=== PATIENT | female | born 1965 | race Caucasian/White ===

== ENCOUNTER → 2017-01-31 | Outpatient (CLI) | payer MEDICARE ==
--- NOTE | 2017-02-01 09:21 | MM ---
Reason for exam: screening (asymptomatic). Last mammogram was performed 1 year ago. History: Family history of breast cancer in mother at age 42, breast cancer in grandmother, and breast cancer in aunt. Physical Findings: A clinical breast exam by your physician is recommended on an annual basis and results should be correlated with mammographic findings. MG Screening Mammo w CAD Bilateral CC and MLO view(s) were taken. Prior study comparison: January 25, 2016, bilateral MG screening mammo w CAD. January 19, 2015, bilateral MG screening mammo w CAD. August 28, 2013, bilateral digital screening mammo w/CAD. The breast tissue is almost entirely fat. No significant changes when compared with prior studies. ASSESSMENT: Negative, BI-RAD 1 RECOMMENDATION: Routine screening mammogram of both breasts in 1 year.
== END | disposition home or self-care (01) ==
LOC: RADMAMWWP 14:57
PROVIDERS: ATTEND Family Medicine
DX: Z12.31 Encounter for screening mammogram for malignant neoplasm of breast (principal); Z80.3 Family history of malignant neoplasm of breast

== ENCOUNTER → 2017-03-01 | Outpatient (CLI) | payer MEDICARE ==
--- NOTE | 2017-03-01 10:18 | CT ---
EXAMINATION TYPE: CT chest wo con DATE OF EXAM: 03/01/2017 9:56 AM COMPARISON: CT chest January 11, 2016 and older CTs back to October 29, 2014. HISTORY: Shortness of breath and cough per order. Prior abnormal CT with spot on lungs per patient. CT DLP: 1131.6 mGycm. Automated Exposure Control for Dose Reduction was Utilized. TECHNIQUE: CT scan of the thorax is performed without IV contrast. FINDINGS: LUNGS: There is redemonstration of nodule right upper lobe measuring 15 x 8 mm on axial image 27 fredi sly stable from October 2014 study. A few adjacent smaller nodules near this level are stable. There is linear scarring anteriorly and inferiorly to this redemonstrated. No new suspicious greater than 4 mm parenchymal nodule or mass is identified bilaterally. There is no pleural effusion or pneumothor ax seen. The tracheobronchial tree is patent. MEDIASTINUM: Lack of IV contrast is noted to limit evaluation for mediastinal and especially hilar ad enopathy. There are no definitive greater than 1 cm noncalcified hilar or mediastinal lymph nodes. Th ere are prominent but calcified right hilar lymph nodes. No cardiomegaly or pericardial effusion is seen. OTHER: Visualized liver is low dense consistent with fatty infiltration. Mild to moderate multilevel spurring in the thoracic spine is present. IMPRESSION: Stable right upper lobe nodule without abnormal hypermetabolic uptake and documentation o f 2 year stability is consistent with postinflammatory etiology. No further follow-up necessary. No C T evidence for acute pulmonary process.
== END | disposition home or self-care (01) ==
LOC: RADCTMAIN 09:35
PROVIDERS: ATTEND Internal Medicine Pulmonary Disease
DX: R91.8 Other nonspecific abnormal finding of lung field (principal)
CPT/HCPCS: 71250

== ENCOUNTER → 2018-05-11 | Outpatient (CLI) | payer MEDICARE ==
[2018-05-11 15:12] LABS: HCT 44.7 % (34.0-46.0); HGB 15.3 gm/dL (11.4-16.0); MCH 31.3 pg (25.0-35.0); MCHC 34.1 g/dL (31.0-37.0); MCV 91.8 fL (80.0-100.0); Mean Platelet Volume 7.2; Platelet Count 290 k/uL (150-450); RBC 4.87 m/uL (3.80-5.40); RDW 13.1 % (11.5-15.5); WBC 7.1 k/uL (3.8-10.6)
[2018-05-11 15:21] LABS: ALT 40 U/L (9-52); AST 27 U/L (14-36); Albumin 4.1 g/dL (3.5-5.0); Alkaline Phosphatase 73 U/L (38-126); Anion Gap 11 mmol/L; Blood Urea Nitrogen 11 mg/dL (7-17); Calcium 9.3 mg/dL (8.4-10.2); Carbon Dioxide 25 mmol/L (22-30); Chloride 103 mmol/L (98-107); Glucose 121 mg/dL (74-99); Magnesium 1.6 mg/dL (1.6-2.3); Sodium 139 mmol/L (137-145); Total Bilirubin 0.3 mg/dL (0.2-1.3); Total Protein 6.7 g/dL (6.3-8.2)
[2018-05-18 13:56] LABS: Arsenic Whole Blood < 2 mcg/L (< 23); Mercury Whole Blood < 2 mcg/L (< 11)
== END | disposition home or self-care (01) ==
LOC: LABWHC1 14:03
PROVIDERS: ATTEND Family Medicine
DX: D58.2 Other hemoglobinopathies (principal); R25.1 Tremor, unspecified; E03.9 Hypothyroidism, unspecified; R47.02 Dysphasia
CPT/HCPCS: 36415; 80053; 82175; 82570; 82728; 83655; 83735; 83825; 84443; 84481; 85027

== ENCOUNTER → 2018-06-04 | Outpatient (CLI) | payer MEDICARE ==
--- NOTE | 2018-06-04 16:30 | MR ---
EXAMINATION TYPE: MR brain wo con DATE OF EXAM: 06/04/2018 COMPARISON: None HISTORY: Tremors CONTRAST: Performed utilizing 12 mL intravenous Gadavist gadolinium contrast. TECHNIQUE: Multiplanar, multiecho imaging on a 3.0 Maribel magnet is performed through the brain. Stud y is performed within 24 hours of arrival to the hospital. The craniovertebral junction is normal. The pituitary is normal. Diffusion-weighted imaging is performed. No abnormal hyperintensity is present to suggest an acute i ntracranial infarct or acute ischemic change. There are scattered punctate areas of hyperintensity on T2 and Inversion Recovery weighted sequences which are non-specific but can be related to microvascular ischemic changes. These number approximate ly 8 which is slightly greater than expected for patient of this age. Normal 5 or less. Finding is no nspecific but could be related to microvascular ischemic change. No corresponding abnormality on the diffusion is evident. Ventricles and sulci are appropriate for the patient age. Temporal lobes appear symmetrical. IMPRESSIONS: 1. Chronic appearing punctate white matter changes most likely on the basis of chronic white matter i schemic change.
== END | disposition home or self-care (01) ==
LOC: RADMRIMAIN 13:42
PROVIDERS: ATTEND Family Medicine
DX: R25.1 Tremor, unspecified (principal)
CPT/HCPCS: 70551

== ENCOUNTER → 2018-06-04 | Outpatient (CLI) | payer MEDICARE ==
--- NOTE | 2018-06-04 13:58 | MM ---
Reason for exam: additional evaluation requested from prior study. Last mammogram was performed 1 year and 4 months ago. History: Family history of breast cancer in mother at age 42, breast cancer in grandmother, and breast cancer in aunt. Physical Findings: Nurse did not find any significant physical abnormalities on exam. MG 3D Diag Mammo Wo Cad SHAHID Bilateral CC, MLO, and CV view(s) were taken. Technologist: Aysha Delaney RT (R)(M) Prior study comparison: January 31, 2017, bilateral MG screening mammo w CAD. January 25, 2016, bilateral MG screening mammo w CAD. There are scattered fibroglandular densities. There is chronic nodularity in the left breast medially. No significant new findings when compared with previous films. These results were verbally communicated with the patient and result sheet given to the patient on 06/04/18. ASSESSMENT: Negative, BI-RAD 1 RECOMMENDATION: Routine screening mammogram of both breasts in 1 year.
== END | disposition home or self-care (01) ==
LOC: RADMAMWWP 12:38
PROVIDERS: ATTEND Family Medicine
DX: Z08 Encounter for follow-up examination after completed treatment for malignant neoplasm (principal); Z85.3 Personal history of malignant neoplasm of breast
CPT/HCPCS: 77066; G0279; 77062

== ENCOUNTER 2018-09-10 15:42 | Inpatient (IN) | payer MEDICARE ==
[2018-09-10] MEDS ORDERED: SODIUM CHLORIDE 0.9% 1,000 ML IV STA (16:19)
[2018-09-10 16:40] LABS: Basophils % (A) 1 %; Eosinophils # (A) 0.1 k/uL (0-0.7); Eosinophils % (A) 2 %; HCT 49.2 % (34.0-46.0); HGB 16.6 gm/dL (11.4-16.0); Lymphocytes # (A) 2.8 k/uL (1.0-4.8); Lymphocytes % (A) 40 %; MCH 31.2 pg (25.0-35.0); MCHC 33.9 g/dL (31.0-37.0); MCV 92.1 fL (80.0-100.0); Mean Platelet Volume 6.9; Monocytes # (A) 0.3 k/uL (0-1.0); Monocytes % (A) 4 %; Neutrophils # (A) 3.7 k/uL (1.3-7.7); Neutrophils % (A) 53 %; Platelet Count 325 k/uL (150-450); RBC 5.34 m/uL (3.80-5.40); RDW 13.1 % (11.5-15.5); WBC 6.9 k/uL (3.8-10.6)
[2018-09-10] MEDS ORDERED: LABETALOL 5 MG/ML VIAL MDV IVP STA (16:40)
[2018-09-10] MEDS ORDERED: DIAZEPAM 5 MG/ML 2 ML INJ IVP STA (16:40)
[2018-09-10 16:51] LABS: ALT 67 U/L (9-52); AST 62 U/L (14-36); Albumin 4.3 g/dL (3.5-5.0); Alkaline Phosphatase 88 U/L (38-126); Anion Gap 9 mmol/L; Blood Urea Nitrogen 12 mg/dL (7-17); Calcium 10.3 mg/dL (8.4-10.2); Carbon Dioxide 28 mmol/L (22-30); Chloride 101 mmol/L (98-107); Glucose 115 mg/dL (74-99); Lipase 114 U/L (23-300); Magnesium 1.7 mg/dL (1.6-2.3); Potassium 4.4 mmol/L (3.5-5.1); Sodium 138 mmol/L (137-145); Total Bilirubin 0.5 mg/dL (0.2-1.3); Total Protein 7.5 g/dL (6.3-8.2)
[2018-09-10 17:13] LABS: Creatine Kinase MB 0.7 ng/mL (0.0-2.4)
[2018-09-10 17:28] LABS: Troponin I 0.156 ng/mL (0.000-0.034)
--- NOTE | 2018-09-10 17:39 | ED ---
Chest Pain HPI - General Chief Complaint: Chest Pain Stated Complaint: chest pain Time Seen by Provider: 09/10/18 16:13 Source: patient, family, RN notes reviewed, old records reviewed Mode of arrival: wheelchair Limitations: no limitations - History of Present Illness Initial Comments: This is a 52-year-old female to the ER for evaluation. This patient resents today for evaluation regards to chest pain patient has anterior chest pain. Left arm tingling and numbness. Patient has been for 2 weeks. Patient has history of high blood pressure history of tremor. Patient was seen in the ER for evaluation by family doctor to possible abnormal EKG. Patient does feel mildly anxious with mild shortness of breath patient does have history of high blood pressure high cholesterol MD Complaint: chest pain -: days(s) (2) Onset: during rest, during exertion Pain Location: left chest Pain Radiation: LUE Severity: mild Severity scale (1-10): 4 Quality: tightness, aching Consistency: constant Improves With: nothing Worsens With: nothing Anginal Symptoms: dyspnea Other Symptoms: palpitations Treatments Prior to Arrival: none - Related Data Home Medications Medication Instructions Recorded Confirmed ARIPiprazole [Abilify] 10 mg PO DAILY 09/10/18 09/10/18 Aspirin EC [Ecotrin Low Dose] 81 mg PO DAILY 09/10/18 09/10/18 Dextroamphetamine/Amphetamine 5 - 10 mg PO DAILY 09/10/18 09/10/18 [Adderall] Divalproex Sodium [Depakote] 500 mg PO HS 09/10/18 09/10/18 Pravastatin Sodium [Pravachol] 40 mg PO HS 09/10/18 09/10/18 Ubidecarenone [Co Q-10] 100 mg PO DAILY 09/10/18 09/10/18 Venlafaxine HCl [Effexor XR] 75 mg PO DAILY 09/10/18 09/10/18 Allergies Allergy/AdvReac Type Severity Reaction Status Date / Time No Known Allergies Allergy Verified 09/10/18 16:06 Review of Systems ROS Statement: Those systems with pertinent positive or pertinent negative responses have been documented in the HPI. ROS Other: All systems not noted in ROS Statement are negative. EKG Findings - EKG Comments: EKG Findings:: EKG shows sinus tachycardia rate of 108, IN 150, QRS 70, QTc 460 Past Medical History Past Medical History: Hyperlipidemia, Hypertension History of Any Multi-Drug Resistant Organisms: None Reported Past Surgical History: Cholecystectomy, Hernia Repair Past Psychological History: ADD/ADHD, Anxiety, Bipolar, Depression, Schizoaffective Disorder Smoking Status: Former smoker Past Alcohol Use History: None Reported Past Drug Use History: None Reported General Exam Limitations: no limitations General appearance: alert, in no apparent distress Head exam: Present: atraumatic, normocephalic, normal inspection Eye exam: Present: normal appearance, PERRL, EOMI. Absent: scleral icterus, conjunctival injection, periorbital swelling ENT exam: Present: normal exam, mucous membranes moist Neck exam: Present: normal inspection. Absent: tenderness, meningismus, lymphadenopathy Respiratory exam: Present: normal lung sounds bilaterally. Absent: respiratory distress, wheezes, rales, rhonchi, stridor Cardiovascular Exam: Present: normal rhythm, tachycardia, normal heart sounds. Absent: systolic murmur, diastolic murmur, rubs, gallop, clicks GI/Abdominal exam: Present: soft, normal bowel sounds. Absent: distended, tenderness, guarding, rebound, rigid Extremities exam: Present: normal inspection, full ROM, normal capillary refill. Absent: tenderness, pedal edema, joint swelling, calf tenderness Back exam: Present: normal inspection Neurological exam: Present: alert, oriented X3, CN II-XII intact Psychiatric exam: Present: normal affect, normal mood Skin exam: Present: warm, dry, intact, normal color. Absent: rash Course Vital Signs 09/10/18 09/10/18 09/10/18 15:47 17:45 18:01 Temperature 98.2 F Pulse Rate 112 H 105 H 110 H Respiratory 18 18 Rate Blood Pressure 186/114 167/89 115/77 O2 Sat by Pulse 98 98 Oximetry - Reevaluation(s) Reevaluation #1: 09/10/18 18:51 Medical record is reviewed Reevaluation #2: 09/10/18 18:51 Patient has improved blood pressure control here in the ER, still with chest pain Chest Pain MDM - MDM 52 female the ER for evaluation. Patient was essay for evaluation of chest pain center by doctor's office rel possibly abnormal EKG. EKG here in the ER is negative 2. Patient placed on anticoagulation will admit for elevated troponin chest pain, non-STEMI Critical Care Time Critical Care Time: Yes Total Critical Care Time: 31 Disposition Clinical Impression: NSTEMI (non-ST elevated myocardial infarction), Chest pain Disposition: ADMITTED IP TO THIS HOSP Condition: Serious Is patient prescribed a controlled substance at d/c from ED?: No Referrals: Ebony Locke MD [Primary Care Provider] - 1-2 days
--- NOTE | 2018-09-10 17:43 | XR ---
EXAMINATION: XR chest 2V DATE AND TIME: 09/10/2018 4:48 PM CLINICAL INDICATION: Chest Pain TECHNIQUE: PA and lateral COMPARISON: 01/02/2014 FINDINGS: The lungs are clear. The pleural spaces are negative. The cardiac silhouette is not enlarged. The remainder of the mediastinal silhouette is unremarkable. The skeletal structures and soft tissues are negative for acute findings. IMPRESSION: NO ACUTE PROCESS.
--- NOTE | 2018-09-10 18:29 | CT ---
EXAMINATION TYPE: CT abdomen pelvis w con DATE OF EXAM: 09/10/2018 COMPARISON: 09/10/2014 HISTORY: Mid to left sided chest pain. CT DLP: 1807.7 mGycm Automated exposure control for dose reduction was used. TECHNIQUE: Helical acquisition of images was performed from the lung bases through the pelvis. CONTRAST: Performed without Oral Contrast and with IV Contrast, patient injected with mL of Isovue 370. FINDINGS: VISUALIZED SUPRADIAPHRAGMATIC STRUCTURES: No significant abnormality is appreciated. LIVER/GB: No significant abnormality is appreciated. PANCREAS: No significant abnormality is seen. SPLEEN: No significant abnormality is seen. ADRENALS: No significant abnormality is seen. KIDNEYS: No significant abnormality is seen. PERITONEAL CAVITY: No free air is visualized. No fluid collections. ABDOMINAL ADENOPATHY: None visualized REPRODUCTIVE ORGANS: No significant abnormality is seen URINARY BLADDER: No significant abnormality is seen. PELVIC ADENOPATHY: None visualized. OSSEOUS STRUCTURES: No significant abnormality is seen. BOWEL: There are no acute findings. However, there are innumerable colonic diverticula seen scattere d throughout the entire colon. No diverticulitis. VASCULATURE: Unremarkable. IMPRESSION: NO ACUTE PROCESS.
--- NOTE | 2018-09-10 18:42 | CT ---
EXAMINATION TYPE: CT angio chest with contrast and with 3-D Reconstruction rendering DATE OF EXAM: 09/10/2018 5:42 PM COMPARISON: 08/23/2017 HISTORY: Mid to left sided chest pain. CT DLP: 553.6 mGycm Automated exposure control for dose reduction was used. CONTRAST: CTA scan of the thorax is performed with IV Contrast, patient injected with 100 mL of Isovu e 370, pulmonary embolism protocol. 3-D reconstructions. FINDINGS: AIRWAYS AND LUNGS: The airways are unremarkable. There is no pulmonary edema or pneumonia or other ac [place] pulmonary process. Stable appearing 15 x 9 mm smoothly marginated right suprahilar nodule is note d. This continues to have soft tissue and calcific density and presumably represents healed granuloma tous process. Associated stable appearance 2 cm right suprahilar lymph node containing central high a ttenuation, presumably granulomatous. MEDIASTINUM: There is satisfactory enhancement of the pulmonary artery and its branches, there is no CT evidence for pulmonary embolism. The thoracic aorta is negative. There is no cardiomegaly. No bakari cardial effusion. PLEURAL SPACES: Negative. BONES AND SOFT TISSUES: No additional significant abnormality is seen. IMPRESSION: NO ACUTE PROCESS.
[2018-09-10 18:47] LABS: D-Dimer 0.41 mg/L FEU (<0.60); Partial Thromboplastin Time 23.4 sec (22.0-30.0); Prothrombin Time 10.3 sec (9.0-12.0)
[2018-09-10] MEDS ORDERED: HEPARIN SODIUM,PORCINE 5,000 UNIT/ML 1 ML VIAL IV PRN (18:47)
[2018-09-10] MEDS ORDERED: HEPARIN SODIUM,PORCINE 5,000 UNIT/ML 1 ML VIAL IV ONE (18:47)
[2018-09-10] MEDS ORDERED: ASPIRIN 81 MG PO STA (18:47)
[2018-09-10] MEDS ORDERED: HEPARIN SOD,PORK IN 0.45% NACL 25,000 UNIT in 0.45% NACL 1 500ML.BAG IV SCH (19:00)
[2018-09-10] MEDS: SODIUM CHLORIDE 0.9% 1,000 ML IV SCH (19:34)
[2018-09-10] MEDS ORDERED: ONDANSETRON 4 MG/2 ML VIAL IM STA (20:19)
[2018-09-10] MEDS: MORPHINE SULFATE 4 MG/ML SYRINGE IVP PRN ×2 (20:24→23:57)
[2018-09-10] MEDS: METOPROLOL TARTRATE 25 MG TAB PO SCH (22:43)
[2018-09-10 23:51] LABS: Creatine Kinase MB 0.7 ng/mL (0.0-2.4)
[2018-09-11 00:09] LABS: Troponin I 0.157 ng/mL (0.000-0.034)
[2018-09-11 00:50] LABS: Cholesterol 250 mg/dL (<200); HDL Cholesterol 67 mg/dL (40-60); LDL Cholesterol,Calculated 133 mg/dL (0-99); Triglycerides 252 mg/dL (<150)
[2018-09-11] MEDS: NITROGLYCERIN SL TABS 0.4 MG TAB SUBLINGUAL PRN ×3 (01:51→12:50)
[2018-09-11] MEDS: MORPHINE SULFATE 4 MG/ML SYRINGE IVP PRN ×2 (03:41→08:25)
[2018-09-11 05:35] LABS: Mean Platelet Volume 7.1; Platelet Count 295 k/uL (150-450)
[2018-09-11 06:14] LABS: Creatine Kinase MB 0.7 ng/mL (0.0-2.4)
[2018-09-11 06:15] LABS: Troponin I 0.16 ng/mL (0.000-0.034)
[2018-09-11] MEDS ORDERED: ALPRAZolam 0.5 MG TAB PO PRN (07:15)
[2018-09-11] MEDS ORDERED: SODIUM CHLORIDE 0.9% 1,000 ML in EMPTY BAG 1 BAG IV ONE (07:15)
[2018-09-11] MEDS ORDERED: NITROGLYCERIN SL TABS 0.4 MG TAB SUBLINGUAL PRN ×2 (07:15→14:16)
[2018-09-11] MEDS ORDERED: ALPRAZolam 0.25 MG TAB PO PRN (07:15)
[2018-09-11] MEDS ORDERED: ASPIRIN 325 MG TAB PO STA (07:20)
[2018-09-11] MEDS ORDERED: ATORVASTATIN 80 MG TAB PO STA (07:21)
[2018-09-11] MEDS: SODIUM CHLORIDE 0.9% 1,000 ML IV SCH ×2 (08:26→17:26)
[2018-09-11] MEDS: METOPROLOL TARTRATE 25 MG TAB PO SCH ×2 (08:27→19:53)
[2018-09-11] MEDS ORDERED: NON-FORMULARY DRUG (Ubidecarenone [Co Q-10] 100 MG) PO SCH (09:00)
[2018-09-11] MEDS ORDERED: ATORVASTATIN 80 MG TAB PO SCH ×2 (09:00→21:00)
[2018-09-11] MEDS ORDERED: ASPIRIN 325 MG TAB PO SCH (09:00)
[2018-09-11 09:11] LABS: Albumin 3.6 g/dL (3.5-5.0); Anion Gap 14 mmol/L; Blood Urea Nitrogen 15 mg/dL (7-17); Calcium 9.4 mg/dL (8.4-10.2); Carbon Dioxide 19 mmol/L (22-30); Chloride 107 mmol/L (98-107); Glucose 100 mg/dL (74-99); Sodium 140 mmol/L (137-145); Total Bilirubin 0.5 mg/dL (0.2-1.3); Total Protein 6.2 g/dL (6.3-8.2)
[2018-09-11 09:12] LABS: ALT 65 U/L (9-52); AST 89 U/L (14-36); Alkaline Phosphatase 88 U/L (38-126); Potassium 4.5 mmol/L (3.5-5.1)
[2018-09-11 09:18] LABS: Basophils % (A) 1 %; Eosinophils # (A) 0.1 k/uL (0-0.7); Eosinophils % (A) 1 %; HCT 46.4 % (34.0-46.0); HGB 14.6 gm/dL (11.4-16.0); Lymphocytes # (A) 3.1 k/uL (1.0-4.8); Lymphocytes % (A) 40 %; MCH 30.3 pg (25.0-35.0); MCHC 31.4 g/dL (31.0-37.0); MCV 96.5 fL (80.0-100.0); Mean Platelet Volume 8.8; Monocytes # (A) 0.4 k/uL (0-1.0); Monocytes % (A) 5 %; Neutrophils # (A) 3.9 k/uL (1.3-7.7); Neutrophils % (A) 50 %; Platelet Count 298 k/uL (150-450); RDW 13.2 % (11.5-15.5); WBC 7.7 k/uL (3.8-10.6)
--- NOTE | 2018-09-11 09:40 | CONS ---
CONSULTATION Mrs. Casey is a 52-year-old female with history of hyperlipidemia, history of chronic tobacco use who stopped two weeks ago, who presented with symptoms of chest discomfort and headache. She has been having the discomfort on and off for the last 3 weeks, lasts 5 minutes, but reoccurs throughout the day multiple times, most common at night. At times, worse when she is lying down. It is not related to physical activity. She is limited in her physical activity. She has dyspnea on exertion, that has been chronic. She has occasional dizziness. No palpitation. No syncope. No PND, orthopnea, or peripheral edema. She has no prior history of cardiac disease. She has no prior documented history of coronary artery disease. In the emergency room, her troponin were mildly elevated. Patient complains of a headache and she has tremors that has been going on for the last few years and workup is unclear according to her. Her coronary risk factors are remarkable for the prior history of smoking. She is hyperlipidemic, nondiabetic. There is no documented history of hypertension. MEDICATION: Include Depakote, Effexor, coenzyme Q10, pravastatin 40 mg daily, Adderall, aspirin and Abilify. REVIEW OF SYSTEMS: RESPIRATORY SYSTEM: She has history of chronic tobacco use. She stopped 2 weeks ago. She used to smoke up to a pack a day. She has history of dyspnea on exertion. GI SYSTEM: No recent GI bleed. No peptic ulcer disease. SYSTEM: No dysuria or hematuria. NERVOUS SYSTEM: Questionable history of stroke many years ago. She has the tremor. PHYSICAL EXAMINATION: She is a 52-year-old female, alert, oriented, in no apparent distress, has diffuse tremor. Blood pressure 112/60 with a heart rate in the 90s. HEAD: Normocephalic. EYES: Sclerae nonicteric. NECK: Good upstroke, no jugular venous distention. CHEST: Clear to auscultation. HEART: Regular rate and rhythm. S1, S2. No S3. No S4. No murmur or rub. ABDOMEN: Soft, obese, nontender. Positive bowel sounds, no organomegaly. EXTREMITIES: No edema, intact distal pulses. LAB DATA: EKG revealed a sinus mechanism, normal axis and intervals, rate of 108, no acute changes. Chest x-ray shows no evidence of an infiltrate. She had a chest CT that revealed no evidence of pulmonary embolism. Lab data revealed a D-dimer of 0.41, hemoglobin of 16.6. Her BUN and creatinine 12 and 0.72, potassium 4.4. Cholesterol is 50 with an LDL of 133. Her AST 62, ALT 67. Her troponin 0.156, 0.157, 0.160. IMPRESSION: 1. Episode of chest discomfort of unclear etiology, has atypical features for ischemic heart disease with mild elevation of troponin, although her troponin trend is not typical of myocardial infarction. 2. Tremors of unclear etiology. 3. Hyperlipidemia. 4. Prior history of smoking. 5. Obesity. RECOMMENDATION: I will obtain echocardiogram with Doppler. I have discussed with her the possibility of requiring cardiac catheterization to further assess her status and guide her treatment. I will await the results of her echo and depending on that, further recommendation will be made. Thank you for this consult. Will follow with you. MMODL / IJN: [id number] /
--- NOTE | 2018-09-11 10:15 | ECHOF ---
Referral Reason:elevTrop MEASUREMENTS -------- HEIGHT: 162.6 cm WEIGHT: 114.3 kg BP: 112/65 RVIDd: 3.0 cm (< 3.3) IVSd: 1.1 cm (0.6 - 1.1) LVIDd: 4.0 cm (3.9 - 5.3) LVPWd: 1.3 cm (0.6 - 1.1) IVSs: 1.6 cm LVIDs: 2.7 cm LVPWs: 1.6 cm LA Diam: 2.3 cm (2.7 - 3.8) LAESV Index (A-L): 17.52 ml/m Ao Diam: 2.9 cm (2.0 - 3.7) AV Cusp: 2.0 cm (1.5 - 2.6) EPSS: 1.3 cm MV E Josue: 0.69 m/s MV DecT: 214 ms MV A Josue: 0.75 m/s MV E/A Ratio: 0.93 MV EF SLOPE: 29.04 mm/s (70 - 150) MV EXCURSION: 1.06 cm (> 18.000) FINDINGS -------- Sinus rhythm. This was a technically adequate study. The left ventricular size is normal. There is mild concentric left ventricular hypertrophy. Overa ll left ventricular systolic function is normal with, an EF between 55 - 60 %. The right ventricle is normal in size. Normal LA size by volume 22+/-6 ml/m2. The right atrium is normal in size. Aortic valve is trileaflet and is mildly thickened. Mild mitral regurgitation is present. The tricuspid valve appears structurally normal. There is no pulmonic regurgitation present. The aortic root size is normal. Normal inferior vena cava with normal inspiratory collapse consistent with estimated right atrial pre ssure of 5 mmHg. There is no pericardial effusion. CONCLUSIONS -------- 1. Sinus rhythm. 2. This was a technically adequate study. 3. The left ventricular size is normal. 4. There is mild concentric left ventricular hypertrophy. 5. Overall left ventricular systolic function is normal with, an EF between 55 - 60 %. 6. The right ventricle is normal in size. 7. Normal LA size by volume 22+/-6 ml/m2. 8. The right atrium is normal in size. 9. Aortic valve is trileaflet and is mildly thickened. 10. Mild mitral regurgitation is present. 11. The tricuspid valve appears structurally normal. 12. There is no pulmonic regurgitation present. 13. The aortic root size is normal. 14. Normal inferior vena cava with normal inspiratory collapse consistent with estimated right atrial pressure of 5 mmHg. 15. There is no pericardial effusion. PATHOLOGY COLLECTOR: ILIA Henderson
--- NOTE | 2018-09-11 10:56 | P.HPIM ---
History of Present Illness H&P Date: 09/11/18 Chief Complaint: Chest pain This is a 53-year-old female patient of Dr. Locke. Patient presented to the emergency room with complaints of chest discomfort and rate. Patient states that the pain has been intermittently occurring for the pasts 3 weeks and last about 5 minutes patient also complains of pain radiating down her left arm. She has known past medical history of thyroid disorder, ex-smoker, migraines, hyperlipidemia, Parkinson's, IBS, anxiety, bipolar, depression and schizophrenia. Troponin elevated on admission 0.156 .0.157 and 0.160. EEG showing sinus tachycardia. Chest x-ray completed showing no acute process. CT of abdomen and pelvis completed showing no acute process. chest CTA completed showing no acute process. Patient started on heparin drip and cardiology services consulted. 2-D echo completed showing an EF between 55 and 60%. At this time patient states chest pain is improved. Patient denies shortness of breath. Patient denies nausea vomiting or diarrhea. Patient denies any urinary burning or frequency. Review of Systems please refer to HPI otherwise unremarkable Past Medical History Past Medical History: Thyroid Disorder Additional Past Medical History / Comment(s): Migraines, UTI, hypothyroid, pt denies HTN, hyperlipidemia, IBS, parkinsons, psoriasis, back pain or any numbness or tingling-these were all documented in previous medical record dated 2011. History of Any Multi-Drug Resistant Organisms: None Reported Past Surgical History: Cholecystectomy, Hernia Repair, Orthopedic Surgery, Tonsillectomy Additional Past Surgical History / Comment(s): L knee arthroscopy, colonoscopy, umbilical hernia repair. Pt denies appendectomy as documented in [facility] dated 2011. Past Anesthesia/Blood Transfusion Reactions: No Reported Reaction Additional Past Anesthesia/Blood Transfusion Reaction / Comment(s): Pt states she received blood when she was very young. Smoking Status: Former smoker - Past Family History Mother Family Medical History: Cancer Additional Family Medical History / Comment(s): Mother of breast cancer at the age of 59yrs. Father Additional Family Medical History / Comment(s): Father is living and has heart disease. Sister(s) Family Medical History: Cancer Additional Family Medical History / Comment(s): Sister had skin cancer. Medications and Allergies Home Medications Medication Instructions Recorded Confirmed Type ARIPiprazole [Abilify] 10 mg PO DAILY 09/10/18 09/10/18 History Aspirin EC [Ecotrin Low Dose] 81 mg PO DAILY 09/10/18 09/10/18 History Dextroamphetamine/Amphetamine 5 - 10 mg PO DAILY 09/10/18 09/10/18 History [Adderall] Divalproex Sodium [Depakote] 500 mg PO HS 09/10/18 09/10/18 History Pravastatin Sodium [Pravachol] 40 mg PO HS 09/10/18 09/10/18 History Ubidecarenone [Co Q-10] 100 mg PO DAILY 09/10/18 09/10/18 History Venlafaxine HCl [Effexor XR] 75 mg PO DAILY 09/10/18 09/10/18 History Allergies Allergy/AdvReac Type Severity Reaction Status Date / Time No Known Allergies Allergy Verified 09/10/18 16:06 Physical Exam Vitals: Vital Signs Temp Pulse Resp BP Pulse Ox 09/11/18 09:38 97.9 F 87 15 134/107 94 L 09/11/18 06:00 93 16 112/65 97 09/11/18 05:00 89 10 L 104/80 95 09/11/18 04:00 101 H 14 141/91 09/11/18 03:00 90 9 L 140/88 09/11/18 02:00 100 14 140/88 91 L 09/11/18 01:00 89 19 145/91 96 09/11/18 00:00 102 H 26 H 113/68 96 09/10/18 23:31 107 H 15 113/68 97 09/10/18 23:00 112 H 15 115/61 97 09/10/18 22:00 125 H 16 126/85 09/10/18 21:00 112 H 17 135/79 93 L 09/10/18 20:00 109 H 16 144/99 95 09/10/18 19:30 20 147/60 97 09/10/18 19:00 106 H 20 130/100 97 09/10/18 18:30 105 H 14 115/77 98 09/10/18 18:01 110 H 115/77 09/10/18 18:00 108 H 16 125/113 98 09/10/18 17:45 105 H 18 167/89 98 09/10/18 17:30 146/98 09/10/18 17:00 99 11 L 151/111 100 09/10/18 16:30 105 H 13 152/111 99 09/10/18 16:00 108 H 18 90 L 09/10/18 15:59 11 L 09/10/18 15:47 98.2 F 112 H 18 186/114 98 Intake and Output 09/10/18 09/11/18 09/11/18 22:59 06:59 14:59 Other: # Voids 2 1 Weight 114.305 kg Head normocephalic Neck supple Lungs clear to auscultation bilaterally no wheezing or crackles Heart regular rate and rhythm S1-S2, no rub or gallop Abdomen is soft nontender nondistended positive bowel sounds no hepatosplenomegaly Extremities no edema Neuro alert and orientated to 3 Results CBC & Chem 7: 09/11/18 05:20 09/11/18 05:20 Labs: Abnormal Lab Results - Last 24 Hours (Table) 09/10/18 09/10/18 09/10/18 Range/Units 16:29 16:29 16:29 Hgb 16.6 H (11.4-16.0) gm/dL Hct 49.2 H (34.0-46.0) % APTT (22.0-30.0) sec Carbon Dioxide (22-30) mmol/L Glucose 115 H (74-99) mg/dL Calcium 10.3 H (8.4-10.2) mg/dL AST 62 H (14-36) U/L ALT 67 H (9-52) U/L Total Creatine Kinase (30-135) U/L Troponin I 0.156 H* (0.000-0.034) ng/mL Total Protein (6.3-8.2) g/dL Triglycerides (<150) mg/dL Cholesterol (<200) mg/dL LDL Cholesterol, Calc (0-99) mg/dL HDL Cholesterol (40-60) mg/dL 09/10/18 09/10/18 09/11/18 Range/Units 16:29 22:55 01:24 Hgb (11.4-16.0) gm/dL Hct (34.0-46.0) % APTT 65.1 H (22.0-30.0) sec Carbon Dioxide (22-30) mmol/L Glucose (74-99) mg/dL Calcium (8.4-10.2) mg/dL AST (14-36) U/L ALT (9-52) U/L Total Creatine Kinase (30-135) U/L Troponin I 0.157 H* (0.000-0.034) ng/mL Total Protein (6.3-8.2) g/dL Triglycerides 252 H (<150) mg/dL Cholesterol 250 H (<200) mg/dL LDL Cholesterol, Calc 133 H (0-99) mg/dL HDL Cholesterol 67 H (40-60) mg/dL 09/11/18 09/11/18 09/11/18 Range/Units 05:20 05:20 05:20 Hgb (11.4-16.0) gm/dL Hct 46.4 H (34.0-46.0) % APTT 52.8 H (22.0-30.0) sec Carbon Dioxide (22-30) mmol/L Glucose (74-99) mg/dL Calcium (8.4-10.2) mg/dL AST (14-36) U/L ALT (9-52) U/L Total Creatine Kinase 28 L (30-135) U/L Troponin I 0.160 H* (0.000-0.034) ng/mL Total Protein (6.3-8.2) g/dL Triglycerides (<150) mg/dL Cholesterol (<200) mg/dL LDL Cholesterol, Calc (0-99) mg/dL HDL Cholesterol (40-60) mg/dL 09/11/18 Range/Units 05:20 Hgb (11.4-16.0) gm/dL Hct (34.0-46.0) % APTT (22.0-30.0) sec Carbon Dioxide 19 L (22-30) mmol/L Glucose 100 H (74-99) mg/dL Calcium (8.4-10.2) mg/dL AST 89 H (14-36) U/L ALT 65 H (9-52) U/L Total Creatine Kinase (30-135) U/L Troponin I (0.000-0.034) ng/mL Total Protein 6.2 L (6.3-8.2) g/dL Triglycerides (<150) mg/dL Cholesterol (<200) mg/dL LDL Cholesterol, Calc (0-99) mg/dL HDL Cholesterol (40-60) mg/dL Thrombosis Risk Factor Assmnt - Choose All That Apply Any of the Below Risk Factors Present?: Yes Each Factor Represents 1 point: Acute DC, Age 41-60 years, Obesity (BMI >25) Other Risk Factors: No Other congenital or acquired thrombophilia - If yes, enter type in comment: No Thrombosis Risk Factor Assessment Total Risk Factor Score: 3 Thrombosis Risk Factor Assessment Level: Moderate Risk Assessment and Plan Assessment: 1. Chest pain with radiation to left arm. Patient started on heparin drip and cardiology services consulted. 2-D echo completed showing EF of 55-60%. Chest x-ray abdominal pelvis CT and chest CTA all showing no acute process. EKG completed showing Sinus tachycardia. Troponin elevated at 0.156, 0.157 and 0.160. Per cardiology services patient maintained on heparin drip and planning heart catheterization today 2. Elevated liver enzymes. AST 89 and ALT 65. Home medication of pravastatin currently on hold. We'll continue to monitor closely 3. History of hyperlipidemia. Medications on hold due to elevated liver enzymes 4. History of hypothyroidism 5. History of schizophrenia. home Medications resumed 6. History of bipolar depression Time with Patient: Greater than 30 (Greater than 60% of the total time spent in counseling and coordination of care. I performed an examination of the patient and discussed their management with the Nurse Practitioner. I have reviewed the Nurse Practitioner's notes and agree with the documented findings and plan of care)
[2018-09-11] MEDS: VENLAFAXINE HCL ER 75 MG CAP PO SCH (11:06)
[2018-09-11] MEDS: ARIPiprazole 10 MG TAB PO SCH (11:07)
[2018-09-11] MEDS ORDERED: LIDOCAINE 1% INJ 10MG/ML (20 ML MDV) ONE (13:25)
[2018-09-11] MEDS ORDERED: HEPARIN SODIUM 1,000 UN/ML (10ML VL) ONE (13:25)
[2018-09-11] MEDS ORDERED: fentaNYL (PF) 50 MCG/ML 2 ML AMP ONE (13:25)
[2018-09-11] MEDS ORDERED: VERAPAMIL 2.5 MG/ML 2 ML AMP ONE (13:25)
[2018-09-11] MEDS ORDERED: fentaNYL (PF) 50 MCG/ML 2 ML AMP IV ONE (13:37)
[2018-09-11] MEDS ORDERED: IV FLUID CONTINUATION 450 ML IV ONE (13:37)
[2018-09-11] MEDS ORDERED: LIDOCAINE 1% INJ 10MG/ML (20 ML MDV) SQ ONE (13:39)
[2018-09-11] MEDS ORDERED: VERAPAMIL SYRINGE (5 MG/10 ML) INTRAARTER ONE (13:43)
[2018-09-11] MEDS ORDERED: TICAGRELOR 90 MG TAB ONE (13:48)
[2018-09-11] MEDS ORDERED: BIVALIRUDIN BOLUS 250 MG/50 ML IV ONE (13:50)
[2018-09-11] MEDS ORDERED: TICAGRELOR 90 MG TAB PO ONE (13:51)
[2018-09-11] MEDS ORDERED: BIVALIRUDIN 250 MG in SODIUM CHLORIDE 0.9% 50 ML IV ONE (13:52)
[2018-09-11] MEDS ORDERED: IOPAMIDOL-370 100ML BTL INJ ONE (14:04)
[2018-09-11] MEDS ORDERED: IOPAMIDOL-370 125ML BTL INJ ONE (14:05)
[2018-09-11] MEDS ORDERED: ZOLPIDEM 5 MG TAB PO PRN (14:16)
[2018-09-11] MEDS ORDERED: MAG HYDROX/AL HYDROX/SIMETH 30 ML CUP PO PRN (14:16)
[2018-09-11] MEDS ORDERED: RX INFO: IV CONTRAST WAS GIVEN 1 EACH MISC MISCELLANE PRN (14:16)
[2018-09-11] MEDS ORDERED: ATROPINE SULFATE 0.1 MG/ML 10ML SYRINGE IV PRN (14:16)
[2018-09-11] MEDS ORDERED: SODIUM CHLORIDE 0.9% 1,000 ML IV SCH (14:30)
--- NOTE | 2018-09-11 14:52 | PTCA ---
PERCUTANEOUSTRANS CORORONARY ANGIOGRAPHY Mrs. Casey is a 52-year-old female who presented with symptoms of chest discomfort and troponin elevation, diagnosed with non ST-segment elevation myocardial infarction and underwent cardiac catheterization that revealed critical stenosis involving the distal right coronary artery. In view of that, recommendation made regarding angioplasty and stenting. The procedures, risks and complication were discussed with the patient, who is in full understanding and agreement. PROCEDURE: A 6-Belarusian FR4 guiding catheter was introduced into the system after cannulated the right coronary ostium, a 0.014 advanced medium weight J-wire was advanced across the lesion and positioned distally. Then a 3.0 x 50 mm Xience Andressa stent was deployed, postdilated at 16 atmospheres. After the last inflation, after appropriate wait, the balloon and the guidewire were withdrawn back in the guiding catheter. Images were obtained and repeated. Those images reveal stable successful stenting. At that point, the guiding catheter, the balloon and the guidewire were removed and left ventriculogram was performed. Following that, catheter and sheaths were removed. Hemostasis was obtained with deployment of a TR band. There was no immediate complication. Patient is returned to her room in stable condition. Of note, the patient received Angiomax per protocol as well as oral loading dose of Brilinta. She had EKG changes with the inflation, but no chest discomfort. RESULTS: Successful stenting of the distal right coronary artery with reduction of stenosis from 99% to 0%. RECOMMENDATION: The patient will be continued on aspirin, Brilinta, and statin. The importance of dual antiplatelet treatment was discussed with the patient and her family, who are in full understanding and agreement. DURATION OF PROCEDURE: 29 minutes. MMODL / IJN: [id number] /
--- NOTE | 2018-09-11 14:52 | CC ---
CARDIAC CATHETERIZATION REPORT Mrs. Casey is a 52-year-old female with known history of hyperlipidemia, history of hypertension who presented with symptoms of chest discomfort and had mild elevation of the troponin. There was no clear EKG changes, but because of her symptoms and her enzymatic changes, recommendation made regarding cardiac catheterization, the procedure, risks and complication were discussed with the patient who is in full understanding and agreement. PROCEDURE: Patient was brought to the botany laboratory assistant in a fasting semi-sedated state after receiving fentanyl and Benadryl and achieving moderate conscious sedated state. Using Xylocaine anesthesia and Seldinger technique, a 6-Gabonese sheath was introduced in the right radial artery. Selective right and left angiography performed using 5-Gabonese 3.5 bend right and left Po catheter, multiple views of the coronary artery including hemiaxial views obtained. Following that, angioplasty and stenting was performed. Following that, a 5-Gabonese tight pigtail catheter was introduced in the left ventricle and a 30 degree ROSA view of the left ventricle was obtained. Following that, catheter and sheaths were removed. Hemostasis was obtained with deployment of a TR band. There was no immediate complication. Patient is returned to her room in stable condition. FINDINGS: LEFT MAIN: This is a large-sized vessel, bifurcating into left circumflex, left anterior descending artery. Left main coronary artery has no evidence of high-grade stenosis. LEFT ANTERIOR DESCENDING ARTERY: This is a large-sized vessel, reaching toward the apex with a wraparound apex segment giving rise to a large proximal diagonal branch. The left anterior descending artery has mild plaque in the mid segment without any evidence of high-grade stenosis. LEFT CIRCUMFLEX: This is a nondominant vessel, small in caliber giving rise to 2 obtuse marginal branch. The left circumflex has mild intimal disease of 10% to 20% without any evidence of high-grade stenosis. RIGHT CORONARY ARTERY: This is a large dominant vessel, bifurcating distally into PDA and posterolateral segment and branches. The mid segment of the right coronary artery has moderate disease of 30% distally, prior to the bifurcation it has a 99% stenosis. The rest of the vessel has no high-grade stenosis. LEFT VENTRICULOGRAM: Left ventriculogram was performed in 30 degree ROSA view and revealed minimal inferior wall hypokinesis, ejection fraction 55%. There was no significant mitral regurgitation. HEMODYNAMICS: There was no gradient across the aortic valve. The left ventricular end-diastolic pressure was 16-20 mmHg. CONCLUSION: 1. Critical stenosis involving the distal right coronary artery. 2. Mild disease in the left anterior descending artery and left circumflex. 3. Preserved left ventricular size and systolic function. RECOMMENDATION: In view of finding anatomy, I recommend proceeding with angioplasty and stenting of the right coronary artery. The procedure, risks and complication were discussed with the patient, who is in full understanding and agreement. MMODL / IJN: [id number] /
[2018-09-11] MEDS ORDERED: ONDANSETRON 4 MG/2 ML VIAL IVP STA (15:00)
[2018-09-11] MEDS: TICAGRELOR 90 MG TAB PO SCH (19:53)
[2018-09-11] MEDS ORDERED: DIVALPROEX 500 MG TABLET.DR PO SCH (21:00)
[2018-09-12] MEDS: SODIUM CHLORIDE 0.9% 1,000 ML IV SCH ×2 (01:57→10:50)
[2018-09-12 05:07] VITALS: RESP 16; TEMP 97.5
[2018-09-12 07:17] LABS: Basophils % (A) 1 %; Eosinophils # (A) 0.1 k/uL (0-0.7); Eosinophils % (A) 1 %; HCT 42.1 % (34.0-46.0); HGB 14.1 gm/dL (11.4-16.0); Lymphocytes # (A) 2.5 k/uL (1.0-4.8); Lymphocytes % (A) 35 %; MCH 31.2 pg (25.0-35.0); MCHC 33.5 g/dL (31.0-37.0); MCV 93.1 fL (80.0-100.0); Mean Platelet Volume 7.7; Monocytes # (A) 0.5 k/uL (0-1.0); Monocytes % (A) 7 %; Neutrophils # (A) 3.9 k/uL (1.3-7.7); Neutrophils % (A) 54 %; Platelet Count 264 k/uL (150-450); RBC 4.52 m/uL (3.80-5.40); RDW 13.1 % (11.5-15.5); WBC 7.2 k/uL (3.8-10.6)
[2018-09-12] MEDS ORDERED: PANTOPRAZOLE 40 MG TABLET PO SCH (07:30)
[2018-09-12 07:41] LABS: ALT 106 U/L (9-52); AST 101 U/L (14-36); Albumin 3.6 g/dL (3.5-5.0); Alkaline Phosphatase 59 U/L (38-126); Anion Gap 8 mmol/L; Blood Urea Nitrogen 10 mg/dL (7-17); Calcium 9.4 mg/dL (8.4-10.2); Carbon Dioxide 26 mmol/L (22-30); Chloride 104 mmol/L (98-107); Glucose 82 mg/dL (74-99); Sodium 138 mmol/L (137-145); Total Bilirubin 0.8 mg/dL (0.2-1.3); Total Protein 6.3 g/dL (6.3-8.2)
[2018-09-12] MEDS ORDERED: NON-FORMULARY DRUG (Dextroamphetamine/Amphetamine [Adderall] 10 MG) PO SCH (09:00)
[2018-09-12] MEDS ORDERED: ASPIRIN 81 MG PO SCH (09:00)
[2018-09-12] MEDS ORDERED: ATORVASTATIN 80 MG TAB PO SCH (09:00)
[2018-09-12] MEDS ORDERED: ASPIRIN 325 MG TAB PO SCH (09:00)
[2018-09-12] MEDS: TICAGRELOR 90 MG TAB PO SCH (09:35)
[2018-09-12] MEDS: ARIPiprazole 10 MG TAB PO SCH (09:35)
[2018-09-12] MEDS: METOPROLOL TARTRATE 25 MG TAB PO SCH (09:35)
[2018-09-12] MEDS: VENLAFAXINE HCL ER 75 MG CAP PO SCH (09:35)
[2018-09-12 11:10] VITALS: BP 173/90; PULSE 78
--- NOTE | 2018-09-12 11:20 | PN ---
PROGRESS NOTE Ms. Casey is a 53-year-old female who presented with symptoms of chest discomfort, had a non ST-segment elevation myocardial infarction, underwent cardiac catheterization yesterday, was found to have critical stenosis involving the distal right coronary artery, underwent successful stenting of that vessel. She is doing well this morning. She has no chest pain. Her breathing has been stable. She denies any dizziness or palpitation. She denies any nausea. She continues on aspirin 81 mg daily. Lipitor 80 mg daily, metoprolol tartrate 25 mg twice a day, and Brilinta 90 mg twice a day. PHYSICAL EXAMINATION: Blood pressure 123/70 with a heart rate in the 80s. LUNGS: Clear, regular rate and rhythm. S1, S2. No S3. No rub. ABDOMEN: Soft, nontender, obese. EXTREMITIES: No edema, right radial pulse intact. LAB DATA: Revealed BUN and creatinine 10 and 0.58, potassium 5.0. Hemoglobin of 14.1. IMPRESSION: 1. Status post stenting of the right coronary artery. 2. Hypertension. 3. Hyperlipidemia. RECOMMENDATION: Patient should be able to be discharged home today and followed as an outpatient. MMODL / IJN: [id number] /
[2018-09-12 11:44] VITALS: BMI 43.3
[2018-09-12] MEDS ORDERED: LOSARTAN 25 MG TAB PO SCH (11:45)
--- NOTE | 2018-09-12 15:08 | P.DS ---
Providers Date of admission: 09/10/18 18:49 Expected date of discharge: 09/12/18 Attending physician: Hermelinda Walton Consults: 09/10/18 18:47 Consult Physician Urgent Consulting Provider: Anaya Johnson Consult Reason/Comments: NSTEMI Do you want consulting provider notified?: Yes 09/11/18 14:16 Consult Physician Routine Consulting Provider: [facility] Consult Reason/Comments: Post Interventional patient Do you want consulting provider notified?: Already Contacted Primary care physician: Ebony Locke [facility] Hospital Course: Discharge diagnosis 1. Chest pain with radiation to left arm related to non-ST segment elevated myocardial infarction. Patient started on heparin drip and cardiology services consulted. 2-D echo completed showing EF of 55-60%. Chest x-ray abdominal pelvis CT and chest CTA all showing no acute process. EKG completed showing Sinus tachycardia. Troponin elevated at 0.156, 0.157 and 0.160. Patient underwent cardiac catheterization yesterday and underwent successful stenting of the distal RCA. Patient has been cleared for discharge from cardiology standpoint. Patient to be maintained on Brilineta 2. Elevated liver enzymes. AST 89 and ALT 65. Home medication of pravastatin currently on hold. We'll continue to monitor closely. AST increasing to 101 and ALT 106. Discussed case with Dr. Johnson per cardiology services. Lipitor to be decreased to 40. Will recheck CMP in 2 days and patient advised to follow -up closely with PCP. 3. History of hyperlipidemia. 4. History of hypothyroidism 5. History of schizophrenia. home Medications resumed 6. History of bipolar depression Hospital course This is a 53-year-old female patient of Dr. Locke. Patient presented to the emergency room with complaints of chest discomfort and rate. Patient states that the pain has been intermittently occurring for the pasts 3 weeks and last about 5 minutes patient also complains of pain radiating down her left arm. She has known past medical history of thyroid disorder, ex-smoker, migraines, hyperlipidemia, Parkinson's, IBS, anxiety, bipolar, depression and schizophrenia. Troponin elevated on admission 0.156 .0.157 and 0.160. EEG showing sinus tachycardia. Chest x-ray completed showing no acute process. CT of abdomen and pelvis completed showing no acute process. chest CTA completed showing no acute process. Patient started on heparin drip and cardiology services consulted. 2-D echo completed showing an EF between 55 and 60%. At this time patient states chest pain is improved. Patient denies shortness of breath. Patient denies nausea vomiting or diarrhea. Patient denies any urinary burning or frequency. On 09/12/2018 patient is alert and oriented 3. This time patient denies chest pain or shortness of breath. Patient denies nausea vomiting or diarrhea. Patient denies any urinary burning and frequency. Cardiology services have cleared patient for discharge. Discussed case with cardiology services in regards to elevated liver enzymes. Lipitor will be decreased to 40 mg per cardiology services. Patient will be followed up closely by PCP and cardiology services. CMP ordered for 2 days. I performed an examination of the patient and discussed their management with the Nurse Practitioner. I have reviewed the Nurse Practitioner's notes and agree with the documented findings and plan of care Patient Condition at Discharge: Stable Plan - Discharge Summary Discharge Rx Participant: No New Discharge Prescriptions: New Atorvastatin [Lipitor] 40 mg PO HS #30 tab Losartan [Cozaar] 25 mg PO DAILY #30 tab Metoprolol Tartrate [Lopressor] 25 mg PO BID #60 tab Nitroglycerin Sl Tabs [Nitrostat] 0.4 mg SUBLINGUAL Q5M PRN #253 tab PRN Reason: Chest Pain Ticagrelor [Brilinta] 90 mg PO BID #60 tab Continue Aspirin EC [Ecotrin Low Dose] 81 mg PO DAILY ARIPiprazole [Abilify] 10 mg PO DAILY Venlafaxine HCl [Effexor XR] 75 mg PO DAILY Dextroamphetamine/Amphetamine [Adderall] 5 - 10 mg PO DAILY Ubidecarenone [Co Q-10] 100 mg PO DAILY Divalproex Sodium [Depakote] 500 mg PO HS Discontinued Pravastatin Sodium [Pravachol] 40 mg PO HS Discharge Medication List ARIPiprazole [Abilify] 10 mg PO DAILY 09/10/18 [History] Aspirin EC [Ecotrin Low Dose] 81 mg PO DAILY 09/10/18 [History] Dextroamphetamine/Amphetamine [Adderall] 5 - 10 mg PO DAILY 09/10/18 [History] Divalproex Sodium [Depakote] 500 mg PO HS 09/10/18 [History] Ubidecarenone [Co Q-10] 100 mg PO DAILY 09/10/18 [History] Venlafaxine HCl [Effexor XR] 75 mg PO DAILY 09/10/18 [History] Atorvastatin [Lipitor] 40 mg PO HS #30 tab 09/12/18 [Rx] Losartan [Cozaar] 25 mg PO DAILY #30 tab 09/12/18 [Rx] Metoprolol Tartrate [Lopressor] 25 mg PO BID #60 tab 09/12/18 [Rx] Nitroglycerin Sl Tabs [Nitrostat] 0.4 mg SUBLINGUAL Q5M PRN #253 tab 09/12/18 [ Rx] Ticagrelor [Brilinta] 90 mg PO BID #60 tab 09/12/18 [Rx] Follow up Appointment(s)/Referral(s): Anaya Johnson MD [STAFF PHYSICIAN] - 09/20/18 3:45 pm Ebony Locke MD [Primary Care Provider] - 09/17/18 2:00 pm Ambulatory/Diagnostic Orders: Comprehensive Metabolic Panel [LAB.AMB] Time Frame: 2 Days, Location: None Selected Patient Instructions/Handouts: Heart Healthy Diet (DC), After Radial Heart Catheterization (GEN)
[2018-09-12] MEDS ORDERED: ATORVASTATIN 40 MG TAB PO SCH (21:00)
== END 2018-09-12 16:15 | disposition home or self-care (01) | DRG 247 ==
LOC: EC 15:42 → 3SCARD 18:49 → 2SICU 09-11 06:21 → 3SCARD 09-11 15:19
PROVIDERS: ADMIT Internal Medicine; ATTEND Internal Medicine
PROC: B2151ZZ Fluoroscopy of Left Heart using Low Osmolar Contrast (ICD-10-PCS; principal; 2018-09-11 13:15)
PROC: B2111ZZ Fluoroscopy of Multiple Coronary Arteries using Low Osmolar Contrast (ICD-10-PCS; principal; 2018-09-11 13:15)
PROC: 027034Z Dilation of Coronary Artery, One Artery with Drug-eluting Intraluminal Device, Percutaneous Approach (ICD-10-PCS; principal; 2018-09-11 13:15)
PROC: 4A023N7 Measurement of Cardiac Sampling and Pressure, Left Heart, Percutaneous Approach (ICD-10-PCS; principal; 2018-09-11 13:15)
DX: I21.4 Non-ST elevation (NSTEMI) myocardial infarction (principal); F31.30 Bipolar disorder, current episode depressed, mild or moderate severity, unspecified; Z68.41 Body mass index [BMI] 40.0-44.9, adult; E03.9 Hypothyroidism, unspecified; E66.9 Obesity, unspecified; E78.00 Pure hypercholesterolemia, unspecified; E78.5 Hyperlipidemia, unspecified; F25.9 Schizoaffective disorder, unspecified; F90.9 Attention-deficit hyperactivity disorder, unspecified type; G20 Parkinson's disease; I10 Essential (primary) hypertension; K58.9 Irritable bowel syndrome, unspecified; Z79.82 Long term (current) use of aspirin; Z79.899 Other long term (current) drug therapy; Z80.3 Family history of malignant neoplasm of breast; Z80.8 Family history of malignant neoplasm of other organs or systems; Z87.891 Personal history of nicotine dependence; Z90.49 Acquired absence of other specified parts of digestive tract
CPT/HCPCS: 36415; 71046; 71275; 74177; 80053; 80061; 82550; 82553; 83690; 83735; 84484; 85025; 85049; 85379; 85610; 85730; 93005; 93306; 93458; 96365; 96366; 96372; 96375; 96376; 99291; C1874

== ENCOUNTER → 2020-01-06 | Outpatient (CLI) | payer MEDICARE ==
--- NOTE | 2020-01-07 10:15 | MM ---
Reason for exam: screening (asymptomatic). Last mammogram was performed 1 year and 7 months ago. History: Patient is postmenopausal. Family history of breast cancer in mother at age 42, breast cancer in grandmother, and breast cancer in aunt. Physical Findings: A clinical breast exam by your physician is recommended on an annual basis and results should be correlated with mammographic findings. MG Screening Mammo w CAD Bilateral CC and MLO view(s) were taken. XCCL view(s) were taken of the left breast. Prior study comparison: June 04, 2018, bilateral MG 3d diag mammo wo cad [facility]. January 31, 2017, bilateral MG screening mammo w CAD. There are scattered fibroglandular densities. No suspicious abnormality. No significant changes when compared with prior studies. ASSESSMENT: Negative, BI-RAD 1 RECOMMENDATION: Routine screening mammogram of both breasts in 1 year.
== END | disposition home or self-care (01) ==
LOC: RADMAMWWP 12:31
PROVIDERS: ATTEND Family Medicine
DX: Z12.31 Encounter for screening mammogram for malignant neoplasm of breast (principal); Z80.3 Family history of malignant neoplasm of breast
CPT/HCPCS: 77067

== ENCOUNTER → 2020-06-26 | Outpatient (CLI) | payer MEDICARE | END | disposition home or self-care (01) | LOC: RADMRIMAIN 16:27 | PROVIDERS: ATTEND Family Medicine | DX: Z53.9 Procedure and treatment not carried out, unspecified reason (principal) ==

== ENCOUNTER → 2020-08-10 | Outpatient (CLI) | payer MEDICARE ==
--- NOTE | 2020-08-10 14:08 | CT ---
EXAMINATION TYPE: CT iac wo con DATE OF EXAM: 08/10/2020 COMPARISON: MRI brain June 04, 2018 HISTORY: Hearing loss left greater than right, cholesteatoma CT DLP: 142.7 mGycm. Automated Exposure Control for Dose Reduction was Utilized. TECHNIQUE: CT scan of internal auditory canal is performed without contrast, thin cut axial images ar e obtained, coronal reformatted images are also reviewed. FINDINGS: The external auditory canals are patent bilaterally. Mastoid air cells show no evidence of new suspicious opacification bilaterally. Right temporal or mastoid surgery with packing is noted ne ar axial image 36. The middle ear ossicles are symmetric and unremarkable. There is no evidence of suspicious surroundi ng soft tissue density to suggest cholesteatoma. The scutum is preserved bilaterally. The cochlea and the semicircular canals are symmetric and unremarkable. Vestibular aqueduct and inte rnal carotid canal appear unremarkable. Temporomandibular joints show degenerative change bilaterally right greater than left with mandibular condyle flattening. Visualized paranasal sinuses are grossly clear. Visualized portion brain parenc hyma is felt within normal limits. Visualized globes are intact. IMPRESSION: Evidence of prior right temporal or mastoid surgery. No recurrent or new mastoiditis or middle ear infection thought present on current study bilaterally.
== END | disposition home or self-care (01) ==
LOC: RADCTMAIN 13:33
PROVIDERS: ATTEND Otolaryngology
DX: H91.93 Unspecified hearing loss, bilateral (principal); H71.93 Unspecified cholesteatoma, bilateral; H70.93 Unspecified mastoiditis, bilateral; Z98.890 Other specified postprocedural states
CPT/HCPCS: 70480

== ENCOUNTER → 2020-08-28 | Outpatient (CLI) | payer MEDICARE ==
--- NOTE | 2020-08-28 15:38 | CT ---
EXAMINATION TYPE: CT chest wo con DATE OF EXAM: 08/28/2020 COMPARISON: CT chest 10/11/2018, 10/29/2014. HISTORY: nodule CT DLP: 848 mGycm Automated exposure control for dose reduction was used. CONTRAST: CT scan of the chest is performed without intravenous contrast. FINDINGS: LUNGS: Lungs are grossly clear. There is an ovoid right upper lobe 14 x 8 mm pulmonary nodule with in ternal calcification, which may represent prior granulomatous disease, unchanged versus 2013 comparis on and most likely benign. No pleural effusion. No pneumothorax. The tracheobronchial tree is patent. MEDIASTINUM/SOFT TISSUES: No axillary, hilar, or mediastinal lymphadenopathy greater than 1 cm. Cardi ac size is normal. No pericardial effusion. Calcific coronary artery disease. No thoracic aortic aneu rysm. UPPER ABDOMEN: No adrenal nodule. OSSEOUS: Degenerative changes of the spine. IMPRESSION: 1. 14 mm right upper lobe pulmonary nodule with internal calcification may represent granulomatous d isease. Findings are unchanged versus 2013 comparison and most likely benign. 2. Calcified coronary artery disease.
== END | disposition home or self-care (01) ==
LOC: RADCTMAIN 12:54
PROVIDERS: ATTEND Internal Medicine Pulmonary Disease
DX: R91.1 Solitary pulmonary nodule (principal); I25.10 Atherosclerotic heart disease of native coronary artery without angina pectoris
CPT/HCPCS: 71250

== ENCOUNTER 2020-09-04 13:19 | Emergency (ER) | payer MEDICARE ==
[2020-09-04 13:46] VITALS: RESP 20
[2020-09-04] MEDS ORDERED: METOPROLOL TARTRATE 25 MG TAB PO STA (14:10)
[2020-09-04] MEDS ORDERED: LOSARTAN 25 MG TAB PO STA (14:10)
--- NOTE | 2020-09-04 14:17 | ED ---
General Adult HPI - General Source: patient, family Mode of arrival: wheelchair Limitations: physical limitation <Jen Ybarra - Last Filed: 09/04/20 15:49> <Shaniqua Shafer Henrik - Last Filed: 09/05/20 16:56> - General Chief complaint: Shortness of Breath Stated complaint: MARCIA,Confused,neck and back pain Time Seen by Provider: 09/04/20 13:53 - History of Present Illness Initial comments: 54-year-old female history of hypothyroidism IBS hypertension possible Parkinson's disease with chronic tremors, chronic migraines, chronic neck and back pain, chronic memory issues, aniscoria (right pupil smaller than left) pre senting to emergency department today for complex complaints including increasing confusion, worsening memory, forgetting to breathe, cannot open eyes bilaterally x past week. Patient states that for years she has had tremors and has been thought to have possible Parkinson's disease (hand held in pill rolling form on gross exam during history). She states she's also had worsening memory for the past year as well as worsening neck and back pain for the past year. Patient states that she feels like she "forget to breath" causing SOB x 6 months increased for past week. Patient states she also now has trouble keeping her eyes open for past week with increased confusion and memory loss in comparison wtih baseline. Pt AAOX4 on arrival. Patient denies current chest pain or headache. Denies localized weakness of a limb/side, denies sensation deficits. Denies loss of bowel/bladder control. Denies vision loss or double vision. Denies fevers, neck stiffness, cough, leg swelling. Denies acute SOB. Admits to some chest pressure that resolved on its own absent today. Patient did not take a nitroglycerin tablet. Patient states she dit not take her blood pressure medications today. Endorses chronic diarrhea, nausea and occasional vomiting that is not new. Patient states that she has had a PFT this week with maintenance department technician Dr. Nogueira and has seen her neurologist this week Dr. Mendoza. She states that he is ordering, nerve tests and other tests to "figure out whats going on. Patient called PCP Dr. Mann today discussing increasing confusion/memory changes and he told her to come to the ER. (Jen Ybarra) - Related Data Home Medications Medication Instructions Recorded Confirmed ARIPiprazole [Abilify] 10 mg PO DAILY 09/10/18 09/10/18 Aspirin EC [Ecotrin Low Dose] 81 mg PO DAILY 09/10/18 09/10/18 Dextroamphetamine/Amphetamine 5 - 10 mg PO DAILY 09/10/18 09/10/18 [Adderall] Divalproex Sodium [Depakote] 500 mg PO HS 09/10/18 09/10/18 Ubidecarenone [Co Q-10] 100 mg PO DAILY 09/10/18 09/10/18 Venlafaxine HCl [Effexor XR] 75 mg PO DAILY 09/10/18 09/10/18 Previous Rx's Medication Instructions Recorded Atorvastatin [Lipitor] 40 mg PO HS #30 tab 09/12/18 Losartan [Cozaar] 25 mg PO DAILY #30 tab 09/12/18 Metoprolol Tartrate [Lopressor] 25 mg PO BID #60 tab 09/12/18 Nitroglycerin Sl Tabs [Nitrostat] 0.4 mg SUBLINGUAL Q5M PRN #253 tab 09/12/18 Ticagrelor [Brilinta] 90 mg PO BID #60 tab 09/12/18 Allergies Allergy/AdvReac Type Severity Reaction Status Date / Time No Known Allergies Allergy Verified 09/04/20 13:46 Review of Systems ROS Other: All systems not noted in ROS Statement are negative. <Jen Ybarra - Last Filed: 09/04/20 15:49> ROS Other: All systems not noted in ROS Statement are negative. <Shaniqua Shafer - Last Filed: 09/05/20 16:56> ROS Statement: Those systems with pertinent positive or pertinent negative responses have been documented in the HPI. Past Medical History Past Medical History: Thyroid Disorder Additional Past Medical History / Comment(s): Migraines, UTI, hypothyroid, pt denies HTN, hyperlipidemia, IBS, parkinsons, psoriasis, back pain or any numbness or tingling-these were all documented in previous medical record dated 2011. History of Any Multi-Drug Resistant Organisms: None Reported Past Surgical History: Cholecystectomy, Hernia Repair, Orthopedic Surgery, Tonsillectomy Additional Past Surgical History / Comment(s): L knee arthroscopy, colonoscopy, umbilical hernia repair. Pt denies appendectomy as documented in PMH dated 2011. Past Anesthesia/Blood Transfusion Reactions: No Reported Reaction Additional Past Anesthesia/Blood Transfusion Reaction / Comment(s): Pt states she received blood when she was very young. Past Psychological History: Anxiety, Bipolar, Depression, Schizophrenia Smoking Status: Former smoker Past Alcohol Use History: None Reported Past Drug Use History: None Reported - Past Family History Mother Family Medical History: Cancer Additional Family Medical History / Comment(s): Mother of breast cancer at the age of 59yrs. Father Additional Family Medical History / Comment(s): Father is living and has heart disease. Sister(s) Family Medical History: Cancer Additional Family Medical History / Comment(s): Sister had skin cancer. <Jen Ybarra - Last Filed: 09/04/20 15:49> General Exam Limitations: physical limitation <Jen Ybarra - Last Filed: 09/04/20 15:49> - General Exam Comments Initial Comments: General: The patient is awake and alert, in no distress Eye: OD +2mm pupil, +3 mm pupil OS, round and reactive to light, extra-ocular movements are intact. No nystagmus. There is normal conjunctiva bilaterally. No signs of icterus. closing eyes Ears, nose, mouth and throat: There are moist mucous membranes and no oral lesions. Neck: The neck is supple, there is no tenderness or JVD. Cardiovascular: There is a regular rate and rhythm. No murmur, rub or gallop is appreciated. Respiratory: Lungs are clear to auscultation, respirations are non-labored, breath sounds are equal. No wheezes, stridor, rales, or rhonchi. Gastrointestinal: Soft, non-distended, non-tender abdomen without masses or organomegaly noted. There is no rebound or guarding present. No CVA tenderness. Bowel sounds are unremarkable. Musculoskeletal: Normal ROM, no tenderness. Strength 5/5 of the UE and LE b/l. Sensation intact of the UE and LE b/l. Pill rolling of left hand noted. Radial and DP pulses equal bilaterally 2+. No ataxia. Neurological: A&O x 3. CN II-XII intact, There are no obvious motor or sensory deficits. Coordination appears grossly intact. Speech is normal. Skin: Skin is warm and dry and no rashes or lesions are noted. Psychiatric: Cooperative, appropriate mood & affect, normal judgment. (Jen Ybarra) Course Vital Signs 09/04/20 09/04/20 09/04/20 13:41 15:00 15:17 Temperature 98.5 F Pulse Rate 102 H 104 H Respiratory 20 20 20 Rate Blood Pressure 208/100 168/94 O2 Sat by Pulse 99 98 Oximetry 09/04/20 16:20 Temperature 98.1 F Pulse Rate 83 Respiratory 20 Rate Blood Pressure 142/92 O2 Sat by Pulse 98 Oximetry Medical Decision Making - Lab Data Result diagrams: 09/04/20 14:23 09/04/20 14:23 <Jen Ybarra - Last Filed: 09/04/20 15:49> - Lab Data Result diagrams: 09/04/20 14:23 09/04/20 14:23 <Shaniqua Shafer - Last Filed: 09/05/20 16:56> - Medical Decision Making 54yo presenting for memory changes, unable to open eyes, feels like cant remember to breath. CXR clear. CT no acute findings. TSH pending. Patient trop (-). Chest pressure yesterday. Patient has pill rolling tremor. family history myasthenia gravis. Patient has no focalized neurological findings aside from aniscoria. Patient case discussed with Dr. Shafer who is agreeable to transfer for further neurological evaluation. Dr. Barrera at [facility] accepted the transfer. (Jen Ybarra) I was available for consultation in the emergency department. The history and physical exam were done by the midlevel provider. I was consulted for this patients care. I reviewed the case with the midlevel provider and based on their presentation of the patient, I agree with the assessment, medical decision making and plan of care as documented. Chart was dictated using [employer] dictation software. Attempts were made to correct any dictation errors however some typographical errors may persist. Patient was seen during a national state of emergency due to the Covid-19 pandemic. (Shaniqua Shafer) - Lab Data Lab Results 09/04/20 09/04/20 09/04/20 Range/Units 14:23 14:23 14:23 WBC 8.3 (3.8-10.6) k/uL RBC 5.20 (3.80-5.40) m/uL Hgb 15.3 (11.4-16.0) gm/dL Hct 47.2 H (34.0-46.0) % MCV 90.7 (80.0-100.0) fL MCH 29.4 (25.0-35.0) pg MCHC 32.4 (31.0-37.0) g/dL RDW 14.5 (11.5-15.5) % Plt Count 310 (150-450) k/uL Neutrophils % 47 % Lymphocytes % 43 % Monocytes % 6 % Eosinophils % 2 % Basophils % 1 % Neutrophils # 3.9 (1.3-7.7) k/uL Lymphocytes # 3.6 (1.0-4.8) k/uL Monocytes # 0.5 (0-1.0) k/uL Eosinophils # 0.1 (0-0.7) k/uL Basophils # 0.1 (0-0.2) k/uL PT 10.5 (9.0-12.0) sec INR 1.0 (<1.2) APTT 22.7 (22.0-30.0) sec Sodium 139 (137-145) mmol/L Potassium 3.5 (3.5-5.1) mmol/L Chloride 104 (98-107) mmol/L Carbon Dioxide 24 (22-30) mmol/L Anion Gap 11 mmol/L BUN 14 (7-17) mg/dL Creatinine 0.69 (0.52-1.04) mg/dL Est GFR (CKD-EPI)AfAm >90 (>60 ml/min/1.73 sqM) Est GFR (CKD-EPI)NonAf >90 (>60 ml/min/1.73 sqM) Glucose 133 H (74-99) mg/dL Plasma Lactic Acid Wolfgang (0.7-2.0) mmol/L Calcium 9.5 (8.4-10.2) mg/dL Total Bilirubin 0.5 (0.2-1.3) mg/dL AST 40 H (14-36) U/L ALT 32 (4-34) U/L Alkaline Phosphatase 73 (38-126) U/L Ammonia (<30) umol/L Troponin I (0.000-0.034) ng/mL Total Protein 7.2 (6.3-8.2) g/dL Albumin 4.5 (3.5-5.0) g/dL TSH 9.050 H (0.465-4.680) mIU/L Free T4 1.17 (0.78-2.19) ng/dL 09/04/20 09/04/20 Range/Units 14:23 14:23 WBC (3.8-10.6) k/uL RBC (3.80-5.40) m/uL Hgb (11.4-16.0) gm/dL Hct (34.0-46.0) % MCV (80.0-100.0) fL MCH (25.0-35.0) pg MCHC (31.0-37.0) g/dL RDW (11.5-15.5) % Plt Count (150-450) k/uL Neutrophils % % Lymphocytes % % Monocytes % % Eosinophils % % Basophils % % Neutrophils # (1.3-7.7) k/uL Lymphocytes # (1.0-4.8) k/uL Monocytes # (0-1.0) k/uL Eosinophils # (0-0.7) k/uL Basophils # (0-0.2) k/uL PT (9.0-12.0) sec INR (<1.2) APTT (22.0-30.0) sec Sodium (137-145) mmol/L Potassium (3.5-5.1) mmol/L Chloride (98-107) mmol/L Carbon Dioxide (22-30) mmol/L Anion Gap mmol/L BUN (7-17) mg/dL Creatinine (0.52-1.04) mg/dL Est GFR (CKD-EPI)AfAm (>60 ml/min/1.73 sqM) Est GFR (CKD-EPI)NonAf (>60 ml/min/1.73 sqM) Glucose (74-99) mg/dL Plasma Lactic Acid Wolfgang 1.7 (0.7-2.0) mmol/L Calcium (8.4-10.2) mg/dL Total Bilirubin (0.2-1.3) mg/dL AST (14-36) U/L ALT (4-34) U/L Alkaline Phosphatase (38-126) U/L Ammonia 9 (<30) umol/L Troponin I <0.012 (0.000-0.034) ng/mL Total Protein (6.3-8.2) g/dL Albumin (3.5-5.0) g/dL TSH (0.465-4.680) mIU/L Free T4 (0.78-2.19) ng/dL Disposition Is patient prescribed a controlled substance at d/c from ED?: No Time of Disposition: 15:49 - Out of Hospital Transfer - Req. Specs Out of Hospital Transfer - Requested Specifics: Other Emergency Center ([facility]--Dr. Barrera; refused EMS transport despite risks.) <Jen Ybarra - Last Filed: 09/04/20 15:49> <Shaniqua Shafer - Last Filed: 09/05/20 16:56> Clinical Impression: Memory changes, Weakness, Confusion, Chronic neck and back pain, Dyspnea Disposition: OTHER INSTITUTION NOT DEFINED Condition: Stable Referrals: Jese Mann MD [Primary Care Provider] - 1-2 days
[2020-09-04] MEDS ORDERED: hydrALAZINE HCL 20 MG/ML 1 ML VIAL IVP STA (15:12)
[2020-09-04 15:17] LABS: Lactic Acid, Venous 1.7 mmol/L (0.7-2.0)
--- NOTE | 2020-09-04 15:18 | CT ---
EXAMINATION TYPE: CT brain wo con DATE OF EXAM: 09/04/2020 COMPARISON: MRI 06/04/2018 HISTORY: 54-year-old female Increased confusion and weakness. TECHNIQUE: Examination was done in axial plane without intravenous contrast. Coronal and sagittal r econstructions performed. CT DLP: 1143.4 mGycm Automated exposure control for dose reduction was used. FINDINGS: There is no evidence of acute intracranial hemorrhage, acute ischemic changes, mass, mass-effect, or extra-axial fluid collection. There is no effacement of cerebral sulci or basal subarachnoid cister ns. There is no hydrocephalus. There is no midline shift. Cullen-white matter distinction is preserv ed. Mild generalized cerebral cortical atrophy Prior partial resection to the right mastoid process. Left mastoid air cells are well pneumatized. Vi sualized orbits and globes are intact. IMPRESSION: Mild generalized cerebral cortical atrophy. No acute intracranial abnormality seen.
[2020-09-04 15:21] LABS: ALT 32 U/L (4-34); AST 40 U/L (14-36); African American GFR (CKD) >90 (>60 ml/min/1.73 sqM); Albumin 4.5 g/dL (3.5-5.0); Alkaline Phosphatase 73 U/L (38-126); Anion Gap 11 mmol/L; Blood Urea Nitrogen 14 mg/dL (7-17); Calcium 9.5 mg/dL (8.4-10.2); Carbon Dioxide 24 mmol/L (22-30); Chloride 104 mmol/L (98-107); Glucose 133 mg/dL (74-99); Non-African American GFR(CKD) >90 (>60 ml/min/1.73 sqM); Potassium 3.5 mmol/L (3.5-5.1); Sodium 139 mmol/L (137-145); Total Bilirubin 0.5 mg/dL (0.2-1.3); Total Protein 7.2 g/dL (6.3-8.2)
[2020-09-04 15:23] LABS: Partial Thromboplastin Time 22.7 sec (22.0-30.0); Prothrombin Time 10.5 sec (9.0-12.0)
[2020-09-04 15:24] LABS: Basophils # (A) 0.1 k/uL (0-0.2); Basophils % (A) 1 %; Eosinophils # (A) 0.1 k/uL (0-0.7); Eosinophils % (A) 2 %; HCT 47.2 % (34.0-46.0); HGB 15.3 gm/dL (11.4-16.0); Lymphocytes # (A) 3.6 k/uL (1.0-4.8); Lymphocytes % (A) 43 %; MCH 29.4 pg (25.0-35.0); MCHC 32.4 g/dL (31.0-37.0); MCV 90.7 fL (80.0-100.0); Mean Platelet Volume 8.6; Monocytes # (A) 0.5 k/uL (0-1.0); Monocytes % (A) 6 %; Neutrophils # (A) 3.9 k/uL (1.3-7.7); Neutrophils % (A) 47 %; Platelet Count 310 k/uL (150-450); RDW 14.5 % (11.5-15.5); WBC 8.3 k/uL (3.8-10.6)
--- NOTE | 2020-09-04 15:31 | XR ---
EXAMINATION TYPE: XR chest 2V DATE OF EXAM: 09/04/2020 COMPARISON: 09/10/2018 HISTORY: 54-year-old female difficulty breathing TECHNIQUE: PA and lateral views FINDINGS: The cardiomediastinal silhouette, aorta, and pulmonary vasculature are within normal limits. Some str beatrice left basilar atelectasis. Otherwise, lungs and pleural spaces are clear. IMPRESSION: No acute cardiopulmonary process.
[2020-09-04] MEDS ORDERED: ONDANSETRON ODT 4 MG TAB PO STA (16:05)
[2020-09-04 16:22] VITALS: BP 142/92; PULSE 83; TEMP 98.1
[2020-09-04 17:12] LABS: T4, Free (Free Thyroxine) 1.17 ng/dL (0.78-2.19)
== END 2020-09-04 16:20 | disposition other institution (70) ==
LOC: EC 13:19
DX: R06.00 Dyspnea, unspecified (principal); R41.0 Disorientation, unspecified; M54.9 Dorsalgia, unspecified; R53.1 Weakness; G89.29 Other chronic pain; R41.3 Other amnesia; F41.9 Anxiety disorder, unspecified; F31.9 Bipolar disorder, unspecified; Z79.899 Other long term (current) drug therapy; Z87.891 Personal history of nicotine dependence; Z90.49 Acquired absence of other specified parts of digestive tract; Z90.89 Acquired absence of other organs
CPT/HCPCS: 36415; 70450; 71046; 80053; 82140; 83605; 84439; 84443; 84484; 85025; 85610; 85730; 93005; 99285

== ENCOUNTER → 2020-09-18 | Outpatient (CLI) | payer MEDICARE ==
[~2020-09-18] MED LIST: IODINE/POTASS IOD (LUGOLS) BOTTLE TOPICAL ONE
--- NOTE | 2020-09-21 09:35 | NM ---
EXAMINATION TYPE: NM DatScan Brain SPECT DATE OF EXAM: 09/18/2020 COMPARISON: CT brain September 04, 2020 HISTORY: Tremors. TECHNIQUE: 10 drops of Lugol's solution was administered 1 hour prior to injection as a thyroid bloc janice agent. After the administration of 4.21 mCi I-123 Ioflupane DaTscan. Images obtained 3 hours p ost injection. SPECT images of the brain were acquired with axial and coronal reconstructions. FINDINGS: Normal uptake of the tracer throughout the straight upright bilaterally. Subsequently there is no evidence of loss of the pre synaptic dopamine terminals on this investigatio n. IMPRESSION: This normal appearance is against the diagnosis of idiopathic Parkinson's disease or Parkinson's synd aries and is seen in healthy individuals and also patients with essential tremor, drug-induced storm onism, and vascular pseudo-parkinsonism.
== END | disposition home or self-care (01) ==
LOC: RADNMMAIN 10:47
PROVIDERS: ATTEND Physician Assistant
DX: R25.1 Tremor, unspecified (principal)
CPT/HCPCS: 78803; A9584

== ENCOUNTER → 2020-09-24 | Day surgery (SDC) | payer MEDICARE ==
[2020-09-22 14:14] VITALS: BMI 43.6
[~2020-09-24] MED LIST changes: -IODINE/POTASS IOD (LUGOLS) BOTTLE TOPICAL ONE; +LACTATED RINGERS 1,000 ML IV SCH; +PROPOFOL 10 MG/ML 20 ML VIAL IV ONE
[2020-09-24 08:06] VITALS: TEMP 96.5
[2020-09-24 08:12] LABS: Glucose,Whole Blood 166 mg/dL (75-99)
--- NOTE | 2020-09-24 08:21 | P.GSHP ---
History of Present Illness H&P Date: 09/24/20 Chief Complaint: Change in bowel habits This a 55-year-old female who presents today for colonoscopy. Patient points of change in bowel habits. Will undergo and colonoscopy. Past Medical History Past Medical History: Diabetes Mellitus, Hyperlipidemia, Hypertension, Myocardial Infarction (MA), Thyroid Disorder Additional Past Medical History / Comment(s): Migraines, - states recent injections in her neck for headaches, nausea daily., numbness/tingling in arms and hands-states tremors., hypothyroid, frequent diarrhea., deaf left ear., states hospitalized in Aug for chestpain. Last Myocardial Infarction Date:: AUG 2019 History of Any Multi-Drug Resistant Organisms: None Reported Past Surgical History: Cholecystectomy, Heart Catheterization, Hernia Repair, Orthopedic Surgery, Tonsillectomy Additional Past Surgical History / Comment(s): L knee arthroscopy, colonoscopy, umbilical hernia repair. Past Anesthesia/Blood Transfusion Reactions: Previous Problems w/ Anesthesia, Motion Sickness, Postoperative Nausea & Vomiting (PONV) Additional Past Anesthesia/Blood Transfusion Reaction / Comment(s): Pt states she received blood when she was very young. Past Psychological History: Anxiety, Bipolar, Depression, Schizophrenia Additional Psychological History / Comment(s): . Smoking Status: Former smoker Past Alcohol Use History: None Reported Additional Past Alcohol Use History / Comment(s): started smoking in 1981, 1ppd., quit Aug 2019. Past Drug Use History: None Reported - Past Family History Mother Family Medical History: Cancer Additional Family Medical History / Comment(s): Mother of breast cancer at the age of 59yrs. Father Family Medical History: No Reported History Additional Family Medical History / Comment(s): . Sister(s) Family Medical History: Cancer Additional Family Medical History / Comment(s): Sister had skin cancer. Medications and Allergies Home Medications Medication Instructions Recorded Confirmed Type Aspirin EC [Ecotrin Low Dose] 81 mg PO DAILY 09/10/18 09/24/20 History Divalproex Sodium [Depakote] 500 mg PO HS 09/10/18 09/24/20 History Venlafaxine HCl [Effexor XR] 225 mg PO DAILY 09/10/18 09/24/20 History Losartan [Cozaar] 25 mg PO DAILY #30 tab 09/12/18 09/24/20 Rx Metoprolol Tartrate [Lopressor] 25 mg PO BID #60 tab 09/12/18 09/24/20 Rx Acetaminophen [Tylenol Arthritis] 650 mg PO BID PRN 09/22/20 09/24/20 History Atorvastatin [Lipitor] 80 mg PO DAILY 09/22/20 09/24/20 History Cholecalciferol [Vitamin D3 (25 1,000 unit PO DAILY 09/22/20 09/24/20 History Mcg = 1000 Iu)] Levothyroxine Sodium 25 mcg PO DAILY 09/22/20 09/24/20 History Melatonin 10 mg PO HS PRN 09/22/20 09/24/20 History Multivit-Min/FA/Lycopen/Lutein 1 each PO DAILY 09/22/20 09/24/20 History [Centrum Silver Tablet] Ondansetron [Zofran] 4 mg PO Q8HR PRN 09/22/20 09/24/20 History metFORMIN HCL [Glucophage] 500 mg PO BID 09/22/20 09/24/20 History Allergies Allergy/AdvReac Type Severity Reaction Status Date / Time No Known Allergies Allergy Verified 09/24/20 07:52 Surgical - Exam Vital Signs Temp Pulse Resp BP Pulse Ox 96.5 F L 98 20 154/91 95 09/24/20 08:03 09/24/20 08:03 09/24/20 08:03 09/24/20 08:03 09/24/20 08:03 - General well developed, well nourished, no distress - Eyes PERRL - ENT normal pinna - Neck no masses - Respiratory normal expansion - Cardiovascular Rhythm: regular - Abdomen Abdomen: soft, non tender Results - Labs Abnormal Lab Results - Last 24 Hours (Table) 09/24/20 Range/Units 08:10 POC Glucose (mg/dL) 166 H (75-99) mg/dL Assessment and Plan Assessment: We'll perform screening colonoscopy.
--- NOTE | 2020-09-24 08:29 | P.OP ---
Date of Procedure: 09/24/20 Preoperative Diagnosis: Screening colonoscopy Postoperative Diagnosis: Severe diverticulosis Procedure(s) Performed: Colonoscopy Anesthesia: MAC Surgeon: Will Diehl Pathology: none sent Condition: stable Disposition: PACU Description of Procedure: The patient's placed on the endoscopy table in the lateral position. She received IV sedation. Digital rectal exam was performed which revealed no rales. The colonoscope was then placed patient anus passed throughout the entire colon. The ileocecal valve was visually's. The cecum, ascending and transverse colon was examined. There is moderate diverticular changes seen throughout the surgery the colon. Scope summer back to the descending; there is extensive diverticular changes. There is no evidence of diverticulitis. Scope summer back the rectum this appeared normal. Scope was drawn from patient.
[2020-09-24 08:30] VITALS: RESP 16
[2020-09-24 08:49] VITALS: BP 100/66; PULSE 77
== END | disposition home or self-care (01) ==
LOC: ORWHC2ENDO 07:36
PROVIDERS: ATTEND Surgery
DX: K57.30 Diverticulosis of large intestine without perforation or abscess without bleeding (principal); R53.83 Other fatigue; R27.8 Other lack of coordination; M50.80 Other cervical disc disorders, unspecified cervical region; H72.92 Unspecified perforation of tympanic membrane, left ear; R63.4 Abnormal weight loss; R11.0 Nausea; F31.9 Bipolar disorder, unspecified; I10 Essential (primary) hypertension; E78.5 Hyperlipidemia, unspecified; K57.90 Diverticulosis of intestine, part unspecified, without perforation or abscess without bleeding; I25.2 Old myocardial infarction; H26.9 Unspecified cataract; G43.709 Chronic migraine without aura, not intractable, without status migrainosus; I25.811 Atherosclerosis of native coronary artery of transplanted heart without angina pectoris; I25.84 Coronary atherosclerosis due to calcified coronary lesion; I69.311 Memory deficit following cerebral infarction; E11.9 Type 2 diabetes mellitus without complications; E07.9 Disorder of thyroid, unspecified; E03.9 Hypothyroidism, unspecified; H90.12 Conductive hearing loss, unilateral, left ear, with unrestricted hearing on the contralateral side; F41.9 Anxiety disorder, unspecified; F20.9 Schizophrenia, unspecified; Z68.41 Body mass index [BMI] 40.0-44.9, adult; Z79.899 Other long term (current) drug therapy; Z79.02 Long term (current) use of antithrombotics/antiplatelets; Z79.82 Long term (current) use of aspirin; Z79.84 Long term (current) use of oral hypoglycemic drugs; Z79.52 Long term (current) use of systemic steroids; Z79.890 Hormone replacement therapy; Z98.890 Other specified postprocedural states; Z90.49 Acquired absence of other specified parts of digestive tract; Z98.41 Cataract extraction status, right eye; Z87.891 Personal history of nicotine dependence; Z87.19 Personal history of other diseases of the digestive system; Z90.89 Acquired absence of other organs; Z91.89 Other specified personal risk factors, not elsewhere classified; Z87.898 Personal history of other specified conditions; Z97.2 Presence of dental prosthetic device (complete) (partial); Z95.5 Presence of coronary angioplasty implant and graft; Z83.3 Family history of diabetes mellitus; Z82.49 Family history of ischemic heart disease and other diseases of the circulatory system; Z80.1 Family history of malignant neoplasm of trachea, bronchus and lung; Z80.3 Family history of malignant neoplasm of breast; Z80.8 Family history of malignant neoplasm of other organs or systems
CPT/HCPCS: 45378; J2704

== ENCOUNTER → 2021-01-27 | Outpatient (CLI) | payer MEDICARE ==
[2021-01-27 16:37] LABS: African American GFR (CKD) >90 (>60 ml/min/1.73 sqM); Blood Urea Nitrogen 15 mg/dL (7-17); Non-African American GFR(CKD) 78 (>60 ml/min/1.73 sqM)
--- NOTE | 2021-01-28 09:21 | CT ---
EXAMINATION TYPE: CT abdomen pelvis w con DATE OF EXAM: 01/27/2021 COMPARISON: 09/10/2018 INDICATION: abdominal pain, diverticulitis DLP: 2110.4 mGycm, Automated exposure control for dose reduction was used. CONTRAST: 100 mL of Isovue 300. Study performed with Oral Contrast TECHNIQUE: Axial images were obtained from above the diaphragm to the pubic rami in the axial plane a t 5 mm thick sections. Reconstructed images are reviewed on the computer in the coronal plane. FINDINGS: Limited CT sections are obtained the lung bases. The lung bases are clear. CT ABDOMEN: Liver: Normal Spleen: Normal Pancreas: Normal Adrenal glands: The adrenal glands are normal. Gallbladder: Not identified. Correlate with patient's surgical history Kidneys: No masses are evident. No hydronephrosis is present. No cysts are present. Delayed images were obtained through the kidneys, which remain unremarkable. Aorta: Vascular calcification is within the aorta. Inferior vena cava: Normal. CT PELVIS: Diverticuli within the sigmoid colon. No adjacent inflammatory changes evident.: Lacks oral contrast which limits evaluation for small or underlying masses. Some thickening within the proximal sigmoid c olon cannot be excluded. There are loops of bowel which are incompletely distended or lack oral contr ast limiting their evaluation. Distended small bowel loops appear normal. Appendix: Normal as visualized. Urinary bladder: Decompressed with limited evaluation Genitourinary structures: Uterus appears normal. No suspicious adnexal masses. Osseous structures: No suspicious lytic or sclerotic lesions. IMPRESSIONS: 1. Diverticulosis without acute diverticulitis. Some mild wall thickening of the proximal sigmoid co anjum is not excluded. This could be related to incomplete distention. Smaller masses such as early harman plasm or colitis could be considered. Follow-up can be performed.
== END ==
LOC: RADCTMAIN 14:56
PROVIDERS: ATTEND Surgery
DX: K57.90 Diverticulosis of intestine, part unspecified, without perforation or abscess without bleeding (principal)
CPT/HCPCS: 82565; 84520; 74177; 36415; Q9967

== ENCOUNTER → 2021-02-22 | Outpatient (CLI) | payer MEDICARE ==
--- NOTE | 2021-02-24 10:27 | MM ---
Reason for exam: screening (asymptomatic). Last mammogram was performed 1 year and 2 months ago. History: Patient is postmenopausal. Family history of breast cancer in mother at age 42, breast cancer in grandmother, and breast cancer in aunt. Physical Findings: A clinical breast exam by your physician is recommended on an annual basis and results should be correlated with mammographic findings. MG 3D Screening Mammo W/Cad Bilateral CC and MLO view(s) were taken. Prior study comparison: January 06, 2020, bilateral MG screening mammo w CAD. June 04, 2018, bilateral MG 3d diag mammo wo cad SHAHID. There are scattered fibroglandular densities. Some new benign dystrophic calcification on the right. Scattered benign vascular calcifications. No significant changes when compared with prior studies. ASSESSMENT: Benign, BI-RAD 2 RECOMMENDATION: Routine screening mammogram of both breasts in 1 year.
== END | disposition home or self-care (01) ==
LOC: RADMAMWWP 15:02
PROVIDERS: ATTEND Family Medicine
DX: Z12.31 Encounter for screening mammogram for malignant neoplasm of breast (principal); Z80.3 Family history of malignant neoplasm of breast
CPT/HCPCS: 77063; 77067

== ENCOUNTER → 2021-07-21 | Outpatient (CLI) | payer MEDICARE ==
[2021-07-21 15:33] LABS: Potassium 4.4 mmol/L (3.5-5.1)
[2021-07-21 15:34] LABS: HCT 36.1 % (34.0-46.0); HGB 12.1 gm/dL (11.4-16.0); MCH 30.6 pg (25.0-35.0); MCHC 33.6 g/dL (31.0-37.0); MCV 91.1 fL (80.0-100.0); Mean Platelet Volume 6.9; Platelet Count 378 k/uL (150-450); RBC 3.97 m/uL (3.80-5.40); RDW 14.2 % (11.5-15.5); WBC 6.5 k/uL (3.8-10.6)
== END | disposition home or self-care (01) ==
LOC: LABPAT 14:24
PROVIDERS: ATTEND Surgery
DX: Z01.812 Encounter for preprocedural laboratory examination (principal); K57.32 Diverticulitis of large intestine without perforation or abscess without bleeding
CPT/HCPCS: 36415; 80051; 85027

== ENCOUNTER 2022-05-01 16:44 | Emergency (ER) | payer MEDICARE ==
[2022-05-01 16:53] VITALS: TEMP 98.8
[2022-05-01] MEDS ORDERED: SODIUM CHLORIDE 0.9% 1,000 ML IV ONE (17:32)
[2022-05-01] MEDS ORDERED: DEXAMETHASONE SOD PHOSPHATE 10 MG/ML 1 ML VIAL IVP STA (17:32)
[2022-05-01 17:36] LABS: Basophils # (A) 0.1 k/uL (0-0.2); Basophils % (A) 2 %; Eosinophils # (A) 0.1 k/uL (0-0.7); Eosinophils % (A) 2 %; HCT 39.4 % (34.0-46.0); Lymphocytes # (A) 1.3 k/uL (1.0-4.8); Lymphocytes % (A) 24 %; MCH 29.5 pg (25.0-35.0); MCV 89.5 fL (80.0-100.0); Mean Platelet Volume 8.1; Monocytes # (A) 0.4 k/uL (0-1.0); Monocytes % (A) 8 %; Neutrophils # (A) 3.3 k/uL (1.3-7.7); Neutrophils % (A) 62 %; Platelet Count 320 k/uL (150-450); WBC 5.3 k/uL (3.8-10.6)
[2022-05-01 17:46] LABS: Albumin 4.2 g/dL (3.5-5.0); Calcium 8.8 mg/dL (8.4-10.2); Potassium 3.8 mmol/L (3.5-5.1); Total Bilirubin 0.7 mg/dL (0.2-1.3); Total Protein 6.9 g/dL (6.3-8.2)
[2022-05-01] MEDS ORDERED: MORPHINE SULFATE 4 MG/ML SYRINGE IVP STA (18:16)
[2022-05-01] MEDS ORDERED: ONDANSETRON 4 MG/2 ML VIAL IVP STA (18:16)
--- NOTE | 2022-05-01 18:36 | XR ---
EXAMINATION TYPE: XR chest 2V DATE OF EXAM: 05/01/2022 COMPARISON: 09/04/2020 HISTORY: Cough and pain TECHNIQUE: 2 views FINDINGS: Heart is normal. Lungs are clear of consolidation. There are no hilar masses. There is smal l linear density right lung base. No pleural effusion. IMPRESSION: Minimal subsegmental atelectasis right lung base is new compared to old exam. Normal hear t.
--- NOTE | 2022-05-01 19:11 | CT ---
EXAMINATION TYPE: CT abdomen pelvis w con DATE OF EXAM: 05/01/2022 COMPARISON: 01/27/2021 HISTORY: COVID + and abdominal pain CT DLP: 2868.4 mGycm Automated exposure control for dose reduction was used. CONTRAST: Performed with IV Contrast, patient injected with 100 mL of Isovue 300. There is a 1 cm calcified granuloma in the right upper lobe. There is mild subsegmental atelectasis a t the right and left lung base. Heart size is normal. No pericardial effusion. Liver spleen stomach p ancreas appear intact. The bile ducts are not dilated. Gallbladder appears absent. There is no adrenal mass. Kidneys show satisfactory contrast opacification. There is no hydronephrosi s. Ureters are not dilated. There is no retroperitoneal adenopathy. Bladder distends smoothly. No ing uinal hernia. Uterus is anteverted. No free fluid in the pelvis. There is previous anterior abdominal wall hernia surgery. There is mild fat stranding over the subcutaneous abdomen. There are some colonic diverticula. No diverticulitis. There is previous surgery at the sigmoid colon . Appendix appears normal. There is shortening of the large bowel. There is no ascites or free air. No sign of a bowel obstruction. The lumbar vertebrae have normal alignment. No compression fracture. Bony pelvis is intact. The hip j oints are intact. IMPRESSION: Large bowel surgery. Abdominal wall hernia surgery. Postsurgical changes. No acute abnormality in the abdomen pelvis.
[2022-05-01] MEDS ORDERED: AMOXIC-POT CLAV 875-125MG 1 EACH TAB PO STA (19:48)
[2022-05-01] MEDS ORDERED: BEBTELOVIMAB (EUA) 175 MG/2 ML VIAL IV ONE (20:30)
--- NOTE | 2022-05-01 20:40 | ED ---
Abdominal Pain HPI - General Chief Complaint: Abdominal Pain Stated Complaint: Abdominal Pain, Positive Home Covid Test Time Seen by Provider: 05/01/22 17:00 Source: patient Mode of arrival: ambulatory Limitations: no limitations - History of Present Illness Initial Comments: 56-year-old female presents emergency room with abdominal pain. States that t mary she began having left lower quadrant abdominal pain that she typically gets when she has a diverticulitis flareup. Patient has not been on any recent antibiotics. Has had difficulty with bowel movements. Normally goes daily. Denies any black or bloody stools. No fevers. Patient was feeling generally weak into the Covid test. Found be covert positive. States she's had a poor appetite with decreased oral intake. No chest pain or short of breath. Does have history of pulmonary disease and sees Dr. Nogueira. No other alleviating, precipitating or modifying factors - Related Data Home Medications Medication Instructions Recorded Confirmed Aspirin EC [Ecotrin Low Dose] 81 mg PO DAILY 09/10/18 07/28/21 Venlafaxine HCl [Effexor XR] 225 mg PO DAILY 09/10/18 07/28/21 Atorvastatin [Lipitor] 80 mg PO DAILY 09/22/20 07/28/21 Ondansetron [Zofran] 4 mg PO Q8HR PRN 09/22/20 07/28/21 metFORMIN HCL [Glucophage] 500 mg PO BID 09/22/20 07/28/21 Fluticasone Propionate [Flovent 2 puff INHALATION BID 07/23/21 07/28/21 Hfa 220 mcg] Gabapentin [Neurontin] 100 mg PO TID 07/23/21 07/28/21 Levothyroxine Sodium [Synthroid] 25 mcg PO DAILY 07/23/21 07/28/21 Losartan [Cozaar] 25 mg PO BID 07/23/21 07/28/21 Meclizine HCl 25 mg PO DAILY 07/23/21 07/28/21 Montelukast [Singulair] 10 mg PO DAILY 07/23/21 07/28/21 Primidone [Mysoline] 50 mg PO BID 07/23/21 07/28/21 risperiDONE [RisperDAL] 1 mg PO HS 07/23/21 07/28/21 Previous Rx's Medication Instructions Recorded Metoprolol Tartrate [Lopressor] 25 mg PO BID #60 tab 10/31/18 HYDROcodone/APAP 5-325MG [Goodrich 1 tab PO Q6HR PRN 3 Days #12 tab 08/02/21 5-325] Amoxic-Pot Clav 875-125Mg 1 tab PO BID #20 tab 05/01/22 [Augmentin 875-125] Ondansetron Odt [Zofran Odt] 4 mg PO Q8HR PRN #20 tab 05/01/22 dexAMETHasone [Decadron] 6 mg PO DAILY #5 tablet 05/01/22 Allergies Allergy/AdvReac Type Severity Reaction Status Date / Time No Known Allergies Allergy Verified 05/01/22 16:52 Review of Systems ROS Statement: Those systems with pertinent positive or pertinent negative responses have been documented in the HPI. ROS Other: All systems not noted in ROS Statement are negative. Past Medical History Past Medical History: Thyroid Disorder Additional Past Medical History / Comment(s): Migraines, UTI, hypothyroid, pt denies HTN, hyperlipidemia, IBS, parkinsons, psoriasis, back pain or any numbness or tingling-these were all documented in previous medical record dated 2011. Last Myocardial Infarction Date:: 2017 History of Any Multi-Drug Resistant Organisms: None Reported Past Surgical History: Cholecystectomy, Hernia Repair, Orthopedic Surgery, Tonsillectomy Additional Past Surgical History / Comment(s): L knee arthroscopy, colonoscopy, umbilical hernia repair. Pt denies appendectomy as documented in [facility] dated 2011. Past Anesthesia/Blood Transfusion Reactions: No Reported Reaction Additional Past Anesthesia/Blood Transfusion Reaction / Comment(s): Pt states she received blood when she was very young. Date of Last Stent Placement:: 2017 Past Psychological History: Anxiety, Bipolar, Depression, Schizophrenia Smoking Status: Former smoker Past Alcohol Use History: None Reported Past Drug Use History: None Reported - Past Family History Mother Family Medical History: Cancer Additional Family Medical History / Comment(s): Mother of breast cancer at the age of 59yrs. Father Family Medical History: No Reported History Additional Family Medical History / Comment(s): . Sister(s) Family Medical History: Cancer Additional Family Medical History / Comment(s): Sister had skin cancer. General Exam Limitations: no limitations General appearance: alert, in no apparent distress Head exam: Present: atraumatic, normocephalic, normal inspection Eye exam: Present: normal appearance, PERRL, EOMI. Absent: scleral icterus, conjunctival injection, periorbital swelling ENT exam: Present: normal exam, mucous membranes moist Neck exam: Present: normal inspection. Absent: tenderness, meningismus, lymphadenopathy Respiratory exam: Present: normal lung sounds bilaterally. Absent: respiratory distress, wheezes, rales, rhonchi, stridor Cardiovascular Exam: Present: regular rate, normal rhythm, normal heart sounds. Absent: systolic murmur, diastolic murmur, rubs, gallop, clicks GI/Abdominal exam: Present: soft, tenderness (llq), normal bowel sounds. Absent: distended, guarding, rebound, rigid Extremities exam: Present: normal inspection, full ROM, normal capillary refill. Absent: tenderness, pedal edema, joint swelling, calf tenderness Back exam: Present: normal inspection Neurological exam: Present: alert, oriented X3, CN II-XII intact Psychiatric exam: Present: normal affect, normal mood Skin exam: Present: warm, dry, intact, normal color. Absent: rash Course Vital Signs 05/01/22 05/01/22 05/01/22 16:50 17:24 18:49 Temperature 98.8 F Pulse Rate 90 86 92 Respiratory 18 18 18 Rate Blood Pressure 103/62 105/63 124/76 O2 Sat by Pulse 95 90 L 97 Oximetry 05/01/22 22:10 Temperature Pulse Rate 97 Respiratory 20 Rate Blood Pressure 106/64 O2 Sat by Pulse 91 L Oximetry Medical Decision Making - Medical Decision Making Upon arrival patient is placed in room 10. History and physical exam was performed. IV access was established. Patient given nausea medications, 4 mg of morphine, 10 mg of dexamethasone and a liter bolus of normal saline. Ever traces are conducted in the patient goes for CT for abdomen and pelvis. Laboratory studies are reviewed. Covid is detected. Chest x-ray demonstrates minimal subsegmental atelectasis right lung base CT of the abdomen and pelvis fails to demonstrate acute process. There are postsurgical changes. Results are discussed the patient. Does report marked improvement in her symptoms. I did recommend admission as when the patient ambulates she does have a drop in her oxygen saturations into the 80s. Patient is refusing admission. States that she has had chronic respiratory insufficiency and will occasionally have high 80 pulse ox readings. She does have an appointment coming up with her adult live in caregiver. Patient does have saturations of 95% without ambulation. She is given monoclonal antibodies. Will be discharged home on antibiotics for her abdominal pain with early diverticulitis a consideration. She is to call her primary care office in the morning without fail and return for any new or worsen ing symptoms for patient agreed and was discharged in stable condition - Lab Data Result diagrams: 05/01/22 17:24 05/01/22 17:24 Lab Results 05/01/22 05/01/22 05/01/22 Range/Units 17:24 17:24 17:24 WBC 5.3 (3.8-10.6) k/uL RBC 4.40 (3.80-5.40) m/uL Hgb 13.0 (11.4-16.0) gm/dL Hct 39.4 (34.0-46.0) % MCV 89.5 (80.0-100.0) fL MCH 29.5 (25.0-35.0) pg MCHC 33.0 (31.0-37.0) g/dL RDW 14.0 (11.5-15.5) % Plt Count 320 (150-450) k/uL MPV 8.1 Neutrophils % 62 % Lymphocytes % 24 % Monocytes % 8 % Eosinophils % 2 % Basophils % 2 % Neutrophils # 3.3 (1.3-7.7) k/uL Lymphocytes # 1.3 (1.0-4.8) k/uL Monocytes # 0.4 (0-1.0) k/uL Eosinophils # 0.1 (0-0.7) k/uL Basophils # 0.1 (0-0.2) k/uL Sodium 136 L (137-145) mmol/L Potassium 3.8 (3.5-5.1) mmol/L Chloride 98 (98-107) mmol/L Carbon Dioxide 28 (22-30) mmol/L Anion Gap 10 mmol/L BUN 10 (7-17) mg/dL Creatinine 0.86 (0.52-1.04) mg/dL Est GFR (CKD-EPI)AfAm 89 (>60 ml/min/1.73 sqM) Est GFR (CKD-EPI)NonAf 77 (>60 ml/min/1.73 sqM) Glucose 163 H (74-99) mg/dL Plasma Lactic Acid Wolfgang 1.7 (0.7-2.0) mmol/L Calcium 8.8 (8.4-10.2) mg/dL Total Bilirubin 0.7 (0.2-1.3) mg/dL AST 86 H (14-36) U/L ALT 50 H (4-34) U/L Alkaline Phosphatase 80 (38-126) U/L Total Protein 6.9 (6.3-8.2) g/dL Albumin 4.2 (3.5-5.0) g/dL Lipase 161 (23-300) U/L Coronavirus (PCR) (Not Detectd) 05/01/22 Range/Units 18:51 WBC (3.8-10.6) k/uL RBC (3.80-5.40) m/uL Hgb (11.4-16.0) gm/dL Hct (34.0-46.0) % MCV (80.0-100.0) fL MCH (25.0-35.0) pg MCHC (31.0-37.0) g/dL RDW (11.5-15.5) % Plt Count (150-450) k/uL MPV Neutrophils % % Lymphocytes % % Monocytes % % Eosinophils % % Basophils % % Neutrophils # (1.3-7.7) k/uL Lymphocytes # (1.0-4.8) k/uL Monocytes # (0-1.0) k/uL Eosinophils # (0-0.7) k/uL Basophils # (0-0.2) k/uL Sodium (137-145) mmol/L Potassium (3.5-5.1) mmol/L Chloride (98-107) mmol/L Carbon Dioxide (22-30) mmol/L Anion Gap mmol/L BUN (7-17) mg/dL Creatinine (0.52-1.04) mg/dL Est GFR (CKD-EPI)AfAm (>60 ml/min/1.73 sqM) Est GFR (CKD-EPI)NonAf (>60 ml/min/1.73 sqM) Glucose (74-99) mg/dL Plasma Lactic Acid Wolfgang (0.7-2.0) mmol/L Calcium (8.4-10.2) mg/dL Total Bilirubin (0.2-1.3) mg/dL AST (14-36) U/L ALT (4-34) U/L Alkaline Phosphatase (38-126) U/L Total Protein (6.3-8.2) g/dL Albumin (3.5-5.0) g/dL Lipase (23-300) U/L Coronavirus (PCR) Detected A (Not Detectd) Disposition Clinical Impression: Acute respiratory insufficiency, COVID-19, Left lower quadrant pain Disposition: HOME SELF-CARE Condition: Stable Instructions (If sedation given, give patient instructions): COVID-19 (Coronavirus Disease 2019) (ED) Additional Instructions: I recommended hospital admission. Please check your oxygen level at home and return should it sustain in the 80s. Use your inhaler every 4 hours. You will be placed on steroids twice daily. Take the antibiotics for your abdominal pain. Follow-up with your doctor in 2-4 days and please return for any new or worsening symptoms Prescriptions: Amoxic-Pot Clav 875-125Mg [Augmentin 875-125] 1 tab PO BID #20 tab dexAMETHasone [Decadron] 6 mg PO DAILY #5 tablet Ondansetron Odt [Zofran Odt] 4 mg PO Q8HR PRN #20 tab PRN Reason: Nausea Is patient prescribed a controlled substance at d/c from ED?: No Referrals: Preston Mitchell III, MD [Primary Care Provider] - 1-2 days Time of Disposition: 20:40
[2022-05-01 22:11] VITALS: BP 106/64; PULSE 97; RESP 20
== END 2022-05-01 22:10 | disposition home or self-care (01) ==
LOC: EC 16:44
DX: U07.1 COVID-19 (principal); R10.32 Left lower quadrant pain; E03.9 Hypothyroidism, unspecified; G20 Parkinson's disease; E78.5 Hyperlipidemia, unspecified; F31.9 Bipolar disorder, unspecified; F41.9 Anxiety disorder, unspecified; F20.9 Schizophrenia, unspecified; Z87.891 Personal history of nicotine dependence; Z79.82 Long term (current) use of aspirin; Z79.890 Hormone replacement therapy; Z79.84 Long term (current) use of oral hypoglycemic drugs; Z79.899 Other long term (current) drug therapy
CPT/HCPCS: 36415; 80053; 83605; 83690; 85025; 87635; 71046; 74177; 99284; 96374; 96375 ×2; 96361; J2270; J1100; J2405; Q9967; Q0222

== ENCOUNTER 2022-11-14 12:34 | Emergency (ER) | payer MEDICARE ==
--- NOTE | 2022-11-14 12:49 | ED ---
General Adult HPI - General Source: patient, RN notes reviewed Mode of arrival: ambulatory Limitations: no limitations <Todd Peñaloza - Last Filed: 11/14/22 12:48> - General Source: patient, RN notes reviewed Mode of arrival: ambulatory Limitations: no limitations <Torrie Arredondo - Last Filed: 11/18/22 19:09> - General Stated complaint: lt side facial edema Time Seen by Provider: 11/14/22 12:48 - History of Present Illness Initial comments: 57 show female presents emergency Department with chief complaint of left-sided facial swelling. Patient states it started several days ago swelling by her left ear. She states now located underneath her left eye states is very painful, swollen. Patient states that hurts when she closes her eye. States she feels like pressure. Patient denies any new products. Denies any trauma. Denies any dental pain as they are dentures. Patient states that she took some [id number]-[id number] medication with no relief symptoms. (Todd Peñaloza) 57-year-old female presents to the emergency department for evaluation of left- sided facial swelling. Patient states the swelling began several days ago and has localized beneath her left eye. Reports tenderness upon palpation. No pain with eye movement. Denies any trauma or injury; no known allergen or exposure t o infectious process. (Torrie Arredondo) - Related Data Home Medications Medication Instructions Recorded Confirmed Aspirin EC [Ecotrin Low Dose] 81 mg PO DAILY 09/10/18 11/14/22 Venlafaxine HCl [Effexor XR] 225 mg PO DAILY 09/10/18 11/14/22 Atorvastatin [Lipitor] 80 mg PO DAILY 09/22/20 11/14/22 metFORMIN HCL [Glucophage] 500 mg PO BID-W/MEALS 09/22/20 11/14/22 Fluticasone Propionate [Flovent 2 puff INHALATION RT-BID PRN 07/23/21 11/14/22 Hfa 220 mcg] Gabapentin [Neurontin] 100 mg PO TID 07/23/21 11/14/22 Levothyroxine Sodium [Synthroid] 25 mcg PO DAILY 07/23/21 11/14/22 Losartan [Cozaar] 25 mg PO BID 07/23/21 11/14/22 risperiDONE [RisperDAL] 1 mg PO HS 07/23/21 11/14/22 Previous Rx's Medication Instructions Recorded Metoprolol Tartrate [Lopressor] 25 mg PO BID #60 tab 09/12/18 Cephalexin [Keflex] 500 mg PO Q6HR 5 Days #20 cap 11/14/22 Allergies Allergy/AdvReac Type Severity Reaction Status Date / Time No Known Allergies Allergy Verified 11/14/22 13:17 Review of Systems ROS Other: All systems not noted in ROS Statement are negative. <Todd Peñaloza - Last Filed: 11/14/22 12:48> ROS Other: All systems not noted in ROS Statement are negative. <Torrie Arredondo - Last Filed: 11/18/22 19:09> ROS Statement: Those systems with pertinent positive or pertinent negative responses have been documented in the HPI. Past Medical History Past Medical History: Thyroid Disorder Additional Past Medical History / Comment(s): Migraines, UTI, hypothyroid, pt denies HTN, hyperlipidemia, IBS, parkinsons, psoriasis, back pain or any numbness or tingling-these were all documented in previous medical record dated 2011. Last Myocardial Infarction Date:: 2017 History of Any Multi-Drug Resistant Organisms: None Reported Past Surgical History: Cholecystectomy, Hernia Repair, Orthopedic Surgery, Tonsillectomy Additional Past Surgical History / Comment(s): L knee arthroscopy, colonoscopy, umbilical hernia repair. Pt denies appendectomy as documented in [facility] dated 2011. Past Anesthesia/Blood Transfusion Reactions: No Reported Reaction Additional Past Anesthesia/Blood Transfusion Reaction / Comment(s): Pt states she received blood when she was very young. Date of Last Stent Placement:: 2017 Past Psychological History: Anxiety, Bipolar, Depression, Schizophrenia Smoking Status: Former smoker Past Alcohol Use History: None Reported Past Drug Use History: None Reported - Past Family History Mother Family Medical History: Cancer Additional Family Medical History / Comment(s): Mother of breast cancer at the age of 59yrs. Father Family Medical History: No Reported History Additional Family Medical History / Comment(s): . Sister(s) Family Medical History: Cancer Additional Family Medical History / Comment(s): Sister had skin cancer. <Todd Peñaloza - Last Filed: 11/14/22 12:48> General Exam Limitations: no limitations General appearance: alert, in no apparent distress Head exam: Present: atraumatic, normocephalic Eye exam: Present: PERRL, EOMI, periorbital swelling (Preseptal swelling, inferior to the left eye), periorbital tenderness (Mild inferior periorbital tenderness). Absent: scleral icterus, conjunctival injection ENT exam: Present: normal exam, normal oropharynx, mucous membranes moist, TM's normal bilaterally Neck exam: Present: normal inspection, full ROM. Absent: tenderness, meningismus, lymphadenopathy Respiratory exam: Present: normal lung sounds bilaterally. Absent: respiratory distress, wheezes, rales, rhonchi, stridor Cardiovascular Exam: Present: regular rate, normal rhythm, normal heart sounds. Absent: systolic murmur, diastolic murmur, rubs, gallop, clicks Neurological exam: Present: alert, oriented X3, CN II-XII intact Skin exam: Present: warm, dry, intact, normal color. Absent: rash <Torrie Arredondo - Last Filed: 11/18/22 19:09> Course Vital Signs 11/14/22 11/14/22 13:15 17:55 Temperature 98.8 F 98.1 F Pulse Rate 108 H 105 H Respiratory 20 18 Rate Blood Pressure 135/86 131/87 O2 Sat by Pulse 99 96 Oximetry Medical Decision Making - Lab Data Result diagrams: 11/14/22 16:50 11/14/22 16:50 <Torrie Arredondo - Last Filed: 11/18/22 19:09> - Medical Decision Making 57-year-old female with no significant past medical history presents to the emergency department for evaluation of preseptal edema inferior to the left eye which has been ongoing for the past several days. Orbit intact with no tenderness. EOMI. No conjunctivitis or conjunctival injection. No change in vision. Laboratory studies obtained and are unremarkable. Lactic acid 1.3, no leukocytosis. Patient will be started on Keflex for facial cellulitis. Strict return parameters were discussed in detail. Encouraged follow-up with PCP for recheck as soon as possible. Patient verbalizes understanding and agrees with this plan. Attending: Hollis Was pt. sent in by a medical professional or institution? @ -No Did you speak to anyone other than the patient for history? @ -No Did you review nursing and triage notes? @ -Yes, agree Were old charts reviewed? @ -No Differential Diagnosis? @ -Facial injury/trauma, soft tissue swelling,periOrbital edema, cellulitis, this is not meant to be an exhaustive list EKG interpreted by me (3pts min.)? @ -Not applicable X-rays interpreted by me (1pt min.)? @ -Not applicable CT interpreted by me (1pt min.)? @ -Not applicable U/S interpreted by me (1pt. min.)? @ -Not applicable What testing was considered but not performed? (CT, X-rays, U/S, labs)? Why? @ -None What meds were considered but not given? Why? @ -None Did you discuss the management of the patient with other professionals? @ -None Did you reconcile home meds? @ -No Was smoking cessation discussed for >3mins.? @ -No Was critical care preformed (if so, how long)? @ -No Were there social determinants of health that impacted care today? How? (Homelessness, low income, unemployed, alcoholism, drug addiction, transportation, low edu. Level, literacy, decrease access to med. care, m[facility], rehab)? @ -No Was there de-escalation of care discussed even if they declined? (Discuss DNR or withdrawal of care, Hospice)? @ -No What co-morbidities impacted this encounter? (DM, HTN, Smoking, COPD, CAD, Cancer, CVA, Hep., AIDS, mental health diagnosis, sleep apnea, morbid obesity)? @None Was patient admitted / discharged? @ -Discharged Undiagnosed new problem with uncertain prognosis? @ -None Drug Therapy requiring intensive monitoring for toxicity (Heparin, Nitro, Ins ulin, Cardizem)? @ -None Were any procedures done? @ -None Diagnosis/symptom? @ -Facial cellulitis Acute, or Chronic, or Acute on Chronic? @ -Acute Uncomplicated (without systemic symptoms) or Complicated (systemic symptoms)? @ -Uncomplicated Side effects of treatment? @ -None Exacerbation, Progression, or Severe Exacerbation] @ -No Poses a threat to life or bodily function? @ -No (Torrie Arredondo) - Lab Data Lab Results 11/14/22 11/14/22 11/14/22 Range/Units 16:50 16:50 16:50 WBC 9.5 (3.8-10.6) k/uL RBC 4.38 (3.80-5.40) m/uL Hgb 13.3 (11.4-16.0) gm/dL Hct 38.4 (34.0-46.0) % MCV 87.8 (80.0-100.0) fL MCH 30.3 (25.0-35.0) pg MCHC 34.5 (31.0-37.0) g/dL RDW 13.7 (11.5-15.5) % Plt Count 440 (150-450) k/uL MPV 7.9 Neutrophils % 61 % Lymphocytes % 30 % Monocytes % 6 % Eosinophils % 2 % Basophils % 1 % Neutrophils # 5.7 (1.3-7.7) k/uL Lymphocytes # 2.9 (1.0-4.8) k/uL Monocytes # 0.5 (0-1.0) k/uL Eosinophils # 0.1 (0-0.7) k/uL Basophils # 0.1 (0-0.2) k/uL Sodium 137 (137-145) mmol/L Potassium 5.4 H (3.5-5.1) mmol/L Chloride 104 (98-107) mmol/L Carbon Dioxide 24 (22-30) mmol/L Anion Gap 9 mmol/L BUN 11 (7-17) mg/dL Creatinine 0.71 (0.52-1.04) mg/dL Est GFR (CKD-EPI)AfAm >90 (>60 ml/min/1.73 sqM) Est GFR (CKD-EPI)NonAf >90 (>60 ml/min/1.73 sqM) Glucose 112 H (74-99) mg/dL Plasma Lactic Acid Wolfgang 1.3 (0.7-2.0) mmol/L Calcium 8.9 (8.4-10.2) mg/dL Total Bilirubin 1.3 (0.2-1.3) mg/dL AST 49 H (14-36) U/L ALT 25 (4-34) U/L Alkaline Phosphatase 85 (38-126) U/L Total Protein 7.5 (6.3-8.2) g/dL Albumin 4.3 (3.5-5.0) g/dL Disposition <Todd Peñaloza - Last Filed: 11/14/22 12:48> Is patient prescribed a controlled substance at d/c from ED?: No Time of Disposition: 17:26 <Maria ElenaTorrie - Last Filed: 11/18/22 19:09> Clinical Impression: Cellulitis, face Disposition: HOME SELF-CARE Condition: Stable Instructions (If sedation given, give patient instructions): Cellulitis (ED) Additional Instructions: You were given first dose of antibiotic in the emergency department. Please obtain prescription and begin taking on Monday. Follow-up with your PCP for a recheck in 48 hours. Return to the emergency department if redness and swelling worsen, you develop a fever, or any other concerning findings. Prescriptions: Cephalexin [Keflex] 500 mg PO Q6HR 5 Days #20 cap Referrals: Preston Mitchell III, MD [Primary Care Provider] - 1-2 days
[2022-11-14 17:06] LABS: Basophils # (A) 0.1 k/uL (0-0.2); Basophils % (A) 1 %; Eosinophils # (A) 0.1 k/uL (0-0.7); Eosinophils % (A) 2 %; HCT 38.4 % (34.0-46.0); HGB 13.3 gm/dL (11.4-16.0); Lymphocytes # (A) 2.9 k/uL (1.0-4.8); Lymphocytes % (A) 30 %; MCH 30.3 pg (25.0-35.0); MCHC 34.5 g/dL (31.0-37.0); MCV 87.8 fL (80.0-100.0); Mean Platelet Volume 7.9; Monocytes # (A) 0.5 k/uL (0-1.0); Monocytes % (A) 6 %; Neutrophils # (A) 5.7 k/uL (1.3-7.7); Neutrophils % (A) 61 %; Platelet Count 440 k/uL (150-450); RBC 4.38 m/uL (3.80-5.40); RDW 13.7 % (11.5-15.5); WBC 9.5 k/uL (3.8-10.6)
[2022-11-14 17:15] LABS: ALT 25 U/L (4-34); African American GFR (CKD) >90 (>60 ml/min/1.73 sqM); Anion Gap 9 mmol/L; Blood Urea Nitrogen 11 mg/dL (7-17); Calcium 8.9 mg/dL (8.4-10.2); Carbon Dioxide 24 mmol/L (22-30); Chloride 104 mmol/L (98-107); Non-African American GFR(CKD) >90 (>60 ml/min/1.73 sqM); Sodium 137 mmol/L (137-145)
[2022-11-14 17:16] LABS: AST 49 U/L (14-36); Albumin 4.3 g/dL (3.5-5.0); Alkaline Phosphatase 85 U/L (38-126); Glucose 112 mg/dL (74-99); Potassium 5.4 mmol/L (3.5-5.1); Total Bilirubin 1.3 mg/dL (0.2-1.3); Total Protein 7.5 g/dL (6.3-8.2)
[2022-11-14] MEDS ORDERED: cefTRIAXone IN SWFI 1,000 MG/10 ML SYRINGE IVP STA (17:19)
[2022-11-14] MEDS ORDERED: cefTRIAXone 1,000 MG VIAL (IM USE) IM STA (17:23)
[2022-11-14 17:56] VITALS: BP 131/87; PULSE 105; RESP 18; TEMP 98.1
== END 2022-11-14 17:55 | disposition home or self-care (01) ==
LOC: EC 12:34
DX: L03.211 Cellulitis of face (principal); E03.9 Hypothyroidism, unspecified; F41.9 Anxiety disorder, unspecified; F31.9 Bipolar disorder, unspecified; Z87.891 Personal history of nicotine dependence; Z79.890 Hormone replacement therapy; Z79.82 Long term (current) use of aspirin; Z79.899 Other long term (current) drug therapy
CPT/HCPCS: 36415; 80053; 83605; 85025; 99283; 96372; J0696

== ENCOUNTER → 2023-06-26 | Outpatient (CLI) | payer MEDICARE ==
--- NOTE | 2023-06-26 10:21 | MM ---
Reason for Exam: Clinical finding. Last mammogram was performed 2 year(s) and 4 month(s) ago. Patient History: Menarche at age 11. First Full-Term at age 19. Postmenopausal. Maternal grandmother had breast cancer. Maternal aunt had breast cancer. Mother had breast cancer, age 42. Risk Values: Doris 5 year model risk: 2.5%. NCI Lifetime model risk: 15.7%. Tissue Density: There are scattered fibroglandular densities. Findings: Analyzed By CAD. Appearing to correlate with patient's palpable abnormality on mammography. No new suspicious masses, calcifications or distortions. Overall Assessment: Benign, BI-RAD 2 Management: Screening Mammogram of both breasts in 1 year. Palpable marker correlates with in erythematous area felt to represent a ingrown hair in the left axilla. Dermatologic evaluation recommended. Results were given to the patient verbally at the time of exam. Patient should continue monthly self-breast exams. A clinical breast exam by your physician is recommended on an annual basis. This exam should not preclude additional follow-up of suspicious palpable abnormalities. Note on Doris scores and lifetime risk: 1. A Doris score greater than 3% is considered moderate risk. If this is the case, consider specialist referral to assess eligibility for a risk reducing agent. 2. If overall lifetime risk for the development of breast cancer is 20% or higher, the patient may qualify for future screening with alternating mammogram and breast MRI. Electronically signed and approved by: Spencer Julio DO
== END | disposition home or self-care (01) ==
LOC: RADMAMWWP 09:45
PROVIDERS: ATTEND Family Medicine
DX: R92.8 Other abnormal and inconclusive findings on diagnostic imaging of breast (principal); Z78.0 Asymptomatic menopausal state; Z80.3 Family history of malignant neoplasm of breast
CPT/HCPCS: 77066; G0279; 77062

== ENCOUNTER 2024-05-28 20:28 | Emergency (ER) | payer MEDICARE ==
--- NOTE | 2024-05-28 20:47 | ED ---
General Adult HPI - General Source: patient, family, RN notes reviewed Mode of arrival: wheelchair Limitations: no limitations <Tran Payan - Last Filed: 05/28/24 20:47> <Jose J Tolentino - Last Filed: 05/29/24 01:46> - General Stated complaint: Back Pain,Sob Time Seen by Provider: 05/28/24 20:47 - History of Present Illness Initial comments: Quick note: 58-year-old female presented to ER with a chief complaint of dizziness. is providing most of HPI. He states for approximately 1 week she has been extremely dizzy upon standing. Patient also is reporting mild back pain which she states is similar to previous MT. She also is reporting nausea and shortness of breath. She denies any current chest discomfort or pain. (Tran Payan) Patient is a 58-year-old female presents emergency department for multiple complaints. Is complaining of lightheadedness, occasional dyspnea, and occasional nausea for the last 2 weeks. Did have some back pain at 1 point but currently denies any. Denies abdominal pain, nausea, vomiting. Denies any diarrhea. No fevers chills, cough. No known sick contacts. Describes her lightheadedness as a head heavy sensation that she occasionally gets when she stands up and improves when she sits down. Presents for further evaluation. Does have a past medical history remarkable for CAD and 1 cardiac stent as well as any dementia. Presents for further evaluation at this time. (Jose J Tolentino) - Related Data Home Medications Medication Instructions Recorded Confirmed Aspirin EC [Ecotrin Low Dose] 81 mg PO DAILY 09/10/18 11/14/22 Venlafaxine HCl [Effexor XR] 225 mg PO DAILY 09/10/18 11/14/22 Atorvastatin [Lipitor] 80 mg PO DAILY 09/22/20 11/14/22 metFORMIN HCL [Glucophage] 500 mg PO BID-W/MEALS 09/22/20 11/14/22 Fluticasone Propionate [Flovent 2 puff INHALATION RT-BID PRN 07/23/21 11/14/22 Hfa 220 mcg] Gabapentin [Neurontin] 100 mg PO TID 07/23/21 11/14/22 Levothyroxine Sodium [Synthroid] 25 mcg PO DAILY 07/23/21 11/14/22 Losartan [Cozaar] 25 mg PO BID 07/23/21 11/14/22 risperiDONE [RisperDAL] 1 mg PO HS 07/23/21 11/14/22 Previous Rx's Medication Instructions Recorded Metoprolol Tartrate [Lopressor] 25 mg PO BID #60 tab 09/12/18 Cephalexin [Keflex] 500 mg PO Q6HR 5 Days #20 cap 11/14/22 Cephalexin [Keflex] 500 mg PO BID 7 Days #14 cap 05/29/24 Allergies Allergy/AdvReac Type Severity Reaction Status Date / Time No Known Allergies Allergy Verified 05/28/24 20:49 Review of Systems ROS Other: All systems not noted in ROS Statement are negative. <Tran Payan - Last Filed: 05/28/24 20:47> ROS Other: All systems not noted in ROS Statement are negative. <Jose J Tolentino - Last Filed: 05/29/24 01:46> ROS Statement: Those systems with pertinent positive or pertinent negative responses have been documented in the HPI. Past Medical History Past Medical History: Thyroid Disorder Additional Past Medical History / Comment(s): Migraines, UTI, hypothyroid, pt denies HTN, hyperlipidemia, IBS, parkinsons, psoriasis, back pain or any numbness or tingling-these were all documented in previous medical record dated 2011. Last Myocardial Infarction Date:: 2017 History of Any Multi-Drug Resistant Organisms: None Reported Past Surgical History: Cholecystectomy, Hernia Repair, Orthopedic Surgery, Tonsillectomy Additional Past Surgical History / Comment(s): L knee arthroscopy, colonoscopy, umbilical hernia repair. Pt denies appendectomy as documented in PM dated 2011. Past Anesthesia/Blood Transfusion Reactions: No Reported Reaction Additional Past Anesthesia/Blood Transfusion Reaction / Comment(s): Pt states she received blood when she was very young. Date of Last Stent Placement:: 2017 Past Psychological History: Anxiety, Bipolar, Depression, Schizophrenia Smoking Status: Former smoker Past Alcohol Use History: None Reported Past Drug Use History: None Reported - Past Family History Mother Family Medical History: Cancer Additional Family Medical History / Comment(s): Mother of breast cancer at the age of 59yrs. Father Family Medical History: No Reported History Additional Family Medical History / Comment(s): . Sister(s) Family Medical History: Cancer Additional Family Medical History / Comment(s): Sister had skin cancer. <Tran Payan - Last Filed: 05/28/24 20:47> General Exam <Tran Payan - Last Filed: 05/28/24 20:47> <Jose J Tolentino - Last Filed: 05/29/24 01:46> - General Exam Comments Initial Comments: Visual Physical Exam Vital signs reviewed General: Well-appearing, nontoxic, no acute distress. Head: Normocephalic, atraumatic Eyes: PERRLA, EOMI ENT: Airway patent Chest: Nonlabored breathing Skin: No visual rash, normal skin tone Neuro: Alert and oriented 3 Musculoskeletal: No gross abnormalities (Tran Payan) Review of Systems: CONST: Denies fever EYES: Denies blurry vision ENT: Denies nasal congestion C/V: Denies Chest pain RESP: Denies shortness of breath GI: Denies abdominal pain : Denies dysuria SKIN: Denies rash. MSK: Denies joint pain. NEURO: Endorses lightheadedness (Jose J Tolentino) Course Vital Signs 05/28/24 05/29/24 20:49 01:19 Temperature 98.0 F Pulse Rate 81 74 Respiratory 16 18 Rate Blood Pressure 94/69 110/59 O2 Sat by Pulse 98 98 Oximetry Medical Decision Making <Tran Payan - Last Filed: 05/28/24 20:47> - Lab Data Result diagrams: 05/28/24 21:12 05/28/24 21:12 - EKG Data -: EKG Interpreted by Me <Jose J Tolentino - Last Filed: 05/29/24 01:46> - Medical Decision Making I performed the quick note portion of this chart. Electronically signed by Maikol Payan PA-C (Tran Payan) Was pt. sent in by a medical professional or institution ([facility], [facility], urgent care, hospital, or intermediate...) When possible be specific @ -No Did you speak to anyone other than the patient for history (EMS, parent, family, police, friend...)? What history was obtained from this source @ -Spoke with patient's who aided with the past medical history for the patient. Did you review nursing and triage notes (agree or disagree)? Why? @ -I reviewed and agree with nursing and triage notes Were old charts reviewed (outside hosp., previous admission, EMS record, old EKG, old radiological studies, urgent care reports/EKG's, intermediate records)? Report findings @ -No old charts were reviewed Differential Diagnosis (chest pain, altered mental status, abdominal pain women, abdominal pain men, vaginal bleeding, weakness, fever, dyspnea, syncope, headache, dizziness, GI bleed, back pain, seizure, CVA, palpatations, mental he alth, musculoskeletal)? @ -Infection, dehydration, UTI, ACS. This list is not all inclusive. EKG interpreted by me (3pts min.). @ -As above X-rays interpreted by me (1pt min.). @ -Chest x-ray reveals no obvious acute cardiopulmonary process. CT interpreted by me (1pt min.). @ -None done U/S interpreted by me (1pt. min.). @ -None done What testing was considered but not performed or refused? (CT, X-rays, U/S, labs)? Why? @ -None What meds were considered but not given or refused? Why? @ -None Did you discuss the management of the patient with other professionals (professionals i.e. , PA, [facility] [facility], lab, RT, psych nurse, social insurance specialist, utility worker [employer]en [employer], teacher, parole hearing officer, rifle case repairer)? Give summary @ -No Was smoking cessation discussed for >3mins.? @ -No Was critical care preformed (if so, how long)? @ -No Were there social determinants of health that impacted care today? How? (Homele ssness, low income, unemployed, alcoholism, drug addiction, transportation, low edu. Level, literacy, decrease access to med. care, group home, rehab)? @ -No Was there de-escalation of care discussed even if they declined (Discuss DNR or withdrawal of care, Hospice)? DNR status @ -No What co-morbidities impacted this encounter? (DM, HTN, Smoking, COPD, CAD, Cancer, CVA, ARF, Chemo, Hep., AIDS, mental health diagnosis, sleep apnea, morbid obesity)? @ -CAD Was patient admitted / discharged? Hospital course, mention meds given and route, prescriptions, significant lab abnormalities, going to OR and other pertinent info. @ -Patient presents with multiple nonspecific symptoms. Currently primary co mplaint is lightheadedness. Workup started in triage and revealed an undetectable troponin, normal D-dimer, as well as BNP within normal limits. Will obtain urine, repeat troponin at 3 hours, viral swabs. Patient was in agreement this plan. Patient is hypomagnesemic to 1.2. EKG shows no signs of acute ischemia. Imaging unremarkable for acute process. She will be symptomatically treated with IV magnesium as well as fluids. Vital signs within acceptable limits. Patient's repeat troponin remains undetectable. Urinalysis remarkable for UTI. Viral swabs negative. I discussed results with the patient. She will be started on IV antibiotics and receive a dose of IV Rocephin prior to discharge. She will be started on Keflex at home and given a prescription. Patient was in agreement this plan. Strict return precautions discussed. Symptoms have resolved with patient. I will provide the patient with a prescription for Keflex. I instructed the patient to follow up with their PCP in the next 1-3 days.. I explained that the patient should return to the emergency department if they experience any worsening symptoms. Strict return precautions were discussed with the patient. The patient expressed understanding of these instructions. I answered all questions that the patient had. The patient was discharged home in good condition with their prescriptions and follow up information. Undiagnosed new problem with uncertain prognosis? @ -No Drug Therapy requiring intensive monitoring for toxicity (Heparin, Nitro, Insulin, Cardizem)? @ -No Were any procedures done? @ -No Diagnosis/symptom? @ -UTI, hypomagnesemia Acute, or Chronic, or Acute on Chronic? @ -Acute Uncomplicated (without systemic symptoms) or Complicated (systemic symptoms)? @ -Complicated Side effects of treatment? @ -No Exacerbation, Progression, or Severe Exacerbation? @ -No Poses a threat to life or bodily function? How? (Chest pain, USA, MT, pneumonia, PE, COPD, DKA, ARF, appy, cholecystitis, CVA, Diverticulitis, Homicidal, Suicidal, threat to staff... and all critical care pts) @ -Unlikely (Jose J Tolentino) - Lab Data Lab Results 05/28/24 05/28/24 05/28/24 Range/Units 21:12 21:12 21:12 WBC 4.5 (3.8-10.6) k/uL RBC 3.97 (3.80-5.40) m/uL Hgb 11.9 (11.4-16.0) gm/dL Hct 35.1 (34.0-46.0) % MCV 88.6 (80.0-100.0) fL MCH 30.0 (25.0-35.0) pg MCHC 33.9 (31.0-37.0) g/dL RDW 13.2 (11.5-15.5) % Plt Count 318 (150-450) k/uL MPV 8.1 Neutrophils % 53 % Lymphocytes % 36 % Monocytes % 6 % Eosinophils % 2 % Basophils % 1 % Neutrophils # 2.4 (1.3-7.7) k/uL Lymphocytes # 1.6 (1.0-4.8) k/uL Monocytes # 0.3 (0-1.0) k/uL Eosinophils # 0.1 (0-0.7) k/uL Basophils # 0.0 (0-0.2) k/uL PT 10.5 (10.0-12.5) sec INR 1.0 (<1.2) APTT 25.9 (22.0-30.0) sec D-Dimer (<0.60) mg/L FEU Sodium 140 (137-145) mmol/L Potassium 3.8 (3.5-5.1) mmol/L Chloride 103 (98-107) mmol/L Carbon Dioxide 29 (22-30) mmol/L Anion Gap 8 mmol/L BUN 9 (7-17) mg/dL Creatinine 0.80 (0.52-1.04) mg/dL Est GFR (CKD-EPI)AfAm >90 (>60 ml/min/1.73 sqM) Est GFR (CKD-EPI)NonAf 82 (>60 ml/min/1.73 sqM) Glucose 108 H (74-99) mg/dL Calcium 8.7 (8.4-10.2) mg/dL Magnesium 1.2 L (1.6-2.3) mg/dL Total Bilirubin 0.4 (0.2-1.3) mg/dL AST 26 (14-36) U/L ALT 17 (4-34) U/L Alkaline Phosphatase 67 (38-126) U/L Troponin I (0.000-0.034) ng/mL NT-Pro-B Natriuret Pep pg/mL Total Protein 6.5 (6.3-8.2) g/dL Albumin 4.0 (3.5-5.0) g/dL Urine Color Urine Appearance (Clear) Urine pH (5.0-8.0) Ur Specific [place] (1.001-1.035) Urine Protein (Negative) Urine Glucose (UA) (Negative) Urine Ketones (Negative) Urine Blood (Negative) Urine Nitrite (Negative) Urine Bilirubin (Negative) Urine Urobilinogen (<2.0) mg/dL Ur Leukocyte Esterase (Negative) Urine RBC (0-5) /hpf Urine WBC (0-5) /hpf Urine WBC Clumps (None) /hpf Ur Squamous Epith Cells (0-4) /hpf Urine Bacteria (None) /hpf Hyaline Casts (0-2) /lpf Urine Mucus (None) /hpf Influenza Type A (PCR) (Not Detectd) Influenza Type B (PCR) (Not Detectd) RSV (PCR) (Not Detectd) SARS-CoV-2 (PCR) (Not Detectd) 05/28/24 05/28/24 05/28/24 Range/Units 21:12 21:12 21:12 WBC (3.8-10.6) k/uL RBC (3.80-5.40) m/uL Hgb (11.4-16.0) gm/dL Hct (34.0-46.0) % MCV (80.0-100.0) fL MCH (25.0-35.0) pg MCHC (31.0-37.0) g/dL RDW (11.5-15.5) % Plt Count (150-450) k/uL MPV Neutrophils % % Lymphocytes % % Monocytes % % Eosinophils % % Basophils % % Neutrophils # (1.3-7.7) k/uL Lymphocytes # (1.0-4.8) k/uL Monocytes # (0-1.0) k/uL Eosinophils # (0-0.7) k/uL Basophils # (0-0.2) k/uL PT (10.0-12.5) sec INR (<1.2) APTT (22.0-30.0) sec D-Dimer 0.44 (<0.60) mg/L FEU Sodium (137-145) mmol/L Potassium (3.5-5.1) mmol/L Chloride (98-107) mmol/L Carbon Dioxide (22-30) mmol/L Anion Gap mmol/L BUN (7-17) mg/dL Creatinine (0.52-1.04) mg/dL Est GFR (CKD-EPI)AfAm (>60 ml/min/1.73 sqM) Est GFR (CKD-EPI)NonAf (>60 ml/min/1.73 sqM) Glucose (74-99) mg/dL Calcium (8.4-10.2) mg/dL Magnesium (1.6-2.3) mg/dL Total Bilirubin (0.2-1.3) mg/dL AST (14-36) U/L ALT (4-34) U/L Alkaline Phosphatase (38-126) U/L Troponin I <0.012 (0.000-0.034) ng/mL NT-Pro-B Natriuret Pep 125 pg/mL Total Protein (6.3-8.2) g/dL Albumin (3.5-5.0) g/dL Urine Color Urine Appearance (Clear) Urine pH (5.0-8.0) Ur Specific [place] (1.001-1.035) Urine Protein (Negative) Urine Glucose (UA) (Negative) Urine Ketones (Negative) Urine Blood (Negative) Urine Nitrite (Negative) Urine Bilirubin (Negative) Urine Urobilinogen (<2.0) mg/dL Ur Leukocyte Esterase (Negative) Urine RBC (0-5) /hpf Urine WBC (0-5) /hpf Urine WBC Clumps (None) /hpf Ur Squamous Epith Cells (0-4) /hpf Urine Bacteria (None) /hpf Hyaline Casts (0-2) /lpf Urine Mucus (None) /hpf Influenza Type A (PCR) (Not Detectd) Influenza Type B (PCR) (Not Detectd) RSV (PCR) (Not Detectd) SARS-CoV-2 (PCR) (Not Detectd) 05/28/24 05/28/24 05/28/24 Range/Units 23:12 23:12 23:51 WBC (3.8-10.6) k/uL RBC (3.80-5.40) m/uL Hgb (11.4-16.0) gm/dL Hct (34.0-46.0) % MCV (80.0-100.0) fL MCH (25.0-35.0) pg MCHC (31.0-37.0) g/dL RDW (11.5-15.5) % Plt Count (150-450) k/uL MPV Neutrophils % % Lymphocytes % % Monocytes % % Eosinophils % % Basophils % % Neutrophils # (1.3-7.7) k/uL Lymphocytes # (1.0-4.8) k/uL Monocytes # (0-1.0) k/uL Eosinophils # (0-0.7) k/uL Basophils # (0-0.2) k/uL PT (10.0-12.5) sec INR (<1.2) APTT (22.0-30.0) sec D-Dimer (<0.60) mg/L FEU Sodium (137-145) mmol/L Potassium (3.5-5.1) mmol/L Chloride (98-107) mmol/L Carbon Dioxide (22-30) mmol/L Anion Gap mmol/L BUN (7-17) mg/dL Creatinine (0.52-1.04) mg/dL Est GFR (CKD-EPI)AfAm (>60 ml/min/1.73 sqM) Est GFR (CKD-EPI)NonAf (>60 ml/min/1.73 sqM) Glucose (74-99) mg/dL Calcium (8.4-10.2) mg/dL Magnesium (1.6-2.3) mg/dL Total Bilirubin (0.2-1.3) mg/dL AST (14-36) U/L ALT (4-34) U/L Alkaline Phosphatase (38-126) U/L Troponin I <0.012 (0.000-0.034) ng/mL NT-Pro-B Natriuret Pep pg/mL Total Protein (6.3-8.2) g/dL Albumin (3.5-5.0) g/dL Urine Color Yellow Urine Appearance Cloudy H (Clear) Urine pH 5.5 (5.0-8.0) Ur Specific [place] 1.026 (1.001-1.035) Urine Protein 1+ H (Negative) Urine Glucose (UA) Negative (Negative) Urine Ketones Trace H (Negative) Urine Blood Trace H (Negative) Urine Nitrite Negative (Negative) Urine Bilirubin Negative (Negative) Urine Urobilinogen <2.0 (<2.0) mg/dL Ur Leukocyte Esterase Large H (Negative) Urine RBC 4 (0-5) /hpf Urine WBC >182 H (0-5) /hpf Urine WBC Clumps Occasional H (None) /hpf Ur Squamous Epith Cells 16 H (0-4) /hpf Urine Bacteria Rare H (None) /hpf Hyaline Casts 2 (0-2) /lpf Urine Mucus Many H (None) /hpf Influenza Type A (PCR) Not Detected (Not Detectd) Influenza Type B (PCR) Not Detected (Not Detectd) RSV (PCR) Not Detected (Not Detectd) SARS-CoV-2 (PCR) Not Detected (Not Detectd) - EKG Data EKG Comments: 12-lead Electrocardiogram Interpretation Note EKG was reviewed and interpreted by myself. 12-lead ECG performed at 2113 is interpreted by me as revealing normal sinus rhythm at a rate of 78 beats per mi nute. [place] is normal. VT interval is 185 ms, QRS duration is 95 ms, QTc is 418 ms.. There were no ST or T wave abnormalities to suggest myocardial ischemia or injury. R wave progression across the precordium was satisfactory. By my interpretation this EKG is non-diagnostic for acute ischemia. (Jose J Tolentino) Disposition <Tran Payan - Last Filed: 05/28/24 20:47> Is patient prescribed a controlled substance at d/c from ED?: No Time of Disposition: 00:34 <Jose J Tolentino - Last Filed: 05/29/24 01:46> Clinical Impression: UTI (urinary tract infection), Hypomagnesemia Disposition: HOME SELF-CARE Condition: Good Instructions (If sedation given, give patient instructions): Urinary Tract Infection in Women (DC), Hypomagnesemia (ED) Prescriptions: Cephalexin [Keflex] 500 mg PO BID 7 Days #14 cap Referrals: Wendy Tolentino DO [Primary Care Provider] - 1-2 days
[2024-05-28 20:54] VITALS: TEMP 98
[2024-05-28 21:20] LABS: Basophils % (A) 1 %; Eosinophils # (A) 0.1 k/uL (0-0.7); Eosinophils % (A) 2 %; HCT 35.1 % (34.0-46.0); HGB 11.9 gm/dL (11.4-16.0); Lymphocytes # (A) 1.6 k/uL (1.0-4.8); Lymphocytes % (A) 36 %; MCHC 33.9 g/dL (31.0-37.0); MCV 88.6 fL (80.0-100.0); Mean Platelet Volume 8.1; Monocytes # (A) 0.3 k/uL (0-1.0); Monocytes % (A) 6 %; Neutrophils # (A) 2.4 k/uL (1.3-7.7); Neutrophils % (A) 53 %; Platelet Count 318 k/uL (150-450); RBC 3.97 m/uL (3.80-5.40); RDW 13.2 % (11.5-15.5); WBC 4.5 k/uL (3.8-10.6)
[2024-05-28 21:30] LABS: ALT 17 U/L (4-34); AST 26 U/L (14-36); African American GFR (CKD) >90 (>60 ml/min/1.73 sqM); Alkaline Phosphatase 67 U/L (38-126); Anion Gap 8 mmol/L; Blood Urea Nitrogen 9 mg/dL (7-17); Calcium 8.7 mg/dL (8.4-10.2); Carbon Dioxide 29 mmol/L (22-30); Chloride 103 mmol/L (98-107); Glucose 108 mg/dL (74-99); Magnesium 1.2 mg/dL (1.6-2.3); Non-African American GFR(CKD) 82 (>60 ml/min/1.73 sqM); Potassium 3.8 mmol/L (3.5-5.1); Sodium 140 mmol/L (137-145); Total Bilirubin 0.4 mg/dL (0.2-1.3); Total Protein 6.5 g/dL (6.3-8.2)
--- NOTE | 2024-05-28 21:45 | XR ---
EXAMINATION TYPE: XR chest 2V DATE OF EXAM: 05/28/2024 9:32 PM CLINICAL INDICATION:Female, 58 years old with history of Chest Pain; [facility] COMPARISON: Chest radiographs from CT 08/28/2020 TECHNIQUE: XR chest 2V Frontal view of the chest. FINDINGS: Lungs/Pleura: Similar right midlung pulmonary nodules seen dating back to at least 2019. There is no evidence of pleural effusion, focal consolidation, or pneumothorax. Pulmonary vascularity: Unremarkable. Heart/mediastinum: Cardiomediastinal silhouette is unremarkable. Musculoskeletal: No acute osseous pathology. IMPRESSION: 1. No acute cardiopulmonary disease process. 2. COPD changes. 3. Similar right midlung nodule dating back to 2021.
[2024-05-28 21:54] LABS: Partial Thromboplastin Time 25.9 sec (22.0-30.0); Prothrombin Time 10.5 sec (10.0-12.5)
[2024-05-28 23:43] LABS: Appearance,Urine Cloudy (Clear); Bacteria,Urine Rare /hpf; Bilirubin,Urine Negative (Negative); Blood,Urine Trace (Negative); Color,Urine Yellow; Glucose,Urine (UA) Negative (Negative); Hyaline Casts,Urine 2 /lpf (0-2); Ketones,Urine Trace (Negative); Leukocyte Esterase,Urine Large (Negative); Mucus,Urine Many /hpf; Nitrite,Urine Negative (Negative); PH, Urine 5.5 (5.0-8.0); Protein,Urine 1+ (Negative); RBC,Urine 4 /hpf (0-5); Specific Gravity,Urine 1.026 (1.001-1.035); Squamous Epithelial Cell,Urine 16 /hpf (0-4); Urobilinogen,Urine <2.0 mg/dL (<2.0); WBC,Urine >182 /hpf (0-5)
[2024-05-28] MEDS: SODIUM CHLORIDE 0.9% 1,000 ML IV STA (23:53)
[2024-05-28] MEDS: MAGNESIUM SULFATE-D5W PMX 1 GM in DEXTROSE/WATER 1 100ML.BAG IVPB ONE (23:54)
[2024-05-29] MEDS: cefTRIAXone IN SWFI 1,000 MG/10 ML SYRINGE IVP STA (01:17)
[2024-05-29 01:20] VITALS: BP 110/59; PULSE 74; RESP 18
== END 2024-05-29 01:20 | disposition home or self-care (01) ==
LOC: EC 20:28
DX: N39.0 Urinary tract infection, site not specified (principal); E83.42 Hypomagnesemia; Z87.891 Personal history of nicotine dependence
CPT/HCPCS: 36415; 93005; 85379; 83880; 80053; 83735; 84484; 85025; 85610; 85730; 81001; 87636; 71046; 99285; 96365; 96375; J3475; 87086